=== PATIENT | female | born 2000 | race Caucasian/White ===

== ENCOUNTER → 2025-05-03 | Outpatient (CLI) | payer OTHER, SELFPAY ==
[2025-05-03 08:12] LABS: Bacteria 0 SEEN /hpf (None Seen); Mucous, Urine 0 SEEN /hpf (<or=2+); Red Blood Cells-Urine 0 SEEN /hpf (0-5)
[2025-05-03 10:24] LABS: Color, Urine Yellow (Yellow); Glucose, Dipstick Normal (Normal); Ketone-Dipstick Negative (Negative); Leukocyte Esterase-Dipstick 100 /ul (Negative); Nitrite-Dipstick Positive (Negative); Occult Blood-Urine Negative /ul (Negative); Protein-Dipstick 15 mg/dl (Negative); Urine Bilirubin Dipstick Negative (Negative); Urine Clarity Clear (Clear); Urine Urobilinogen Normal (Normal); Urine pH 6.5 (5.0 - 8.0)
[2025-05-03 10:34] LABS: Squamous Epithelial Cells - UA 0-5 SEEN /hpf (5-10); White Blood Cells 0-5 SEEN /hpf (0-5)
== END | disposition home or self-care (01) ==
LOC: LABSPEC 08:10
PROVIDERS: PCP Pediatrics; Visit Provider Physician Assistant
DX: R30.0 Dysuria (principal)
CPT/HCPCS: 81001; 87086

== ENCOUNTER 2025-07-22 06:36 | Outpatient (REF) | payer OTHER, SELFPAY ==
[2025-07-22 06:40] VITALS: BP 116/85; PULSE 56; RESP 16; TEMP 36.6; O2SAT 100; BMI 20.1
--- NOTE | 2025-07-22 07:09 | EDS_ITS ---
HPI History of Present Illness Chief Complaint: Occup Expose Informant: patient Narrative Narrative: Patient is a 25-year-old female who is otherwise healthy. 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 She states she was wearing gloves and the needle did solis the glove. She states there was a pin prick injury to the thumb with scant bleeding. She reports that this happened just prior to presenting in the ER and that she did wash the area vigorously prior to coming down for evaluation. She denies any numbness tingling or weakness with the potential for blood-borne pathogen exposure she presents for evaluation. PFSH PFS Medical History no medical history no medical history Allergy/AdvReac Type Severity Reaction Status Date / Time No Known Allergies Allergy Verified 05/03/25 07:45 Family History (Updated 05/03/25 @ 07:47 by Allegra Ruiz MA) Other CHF (congestive heart failure) Cancer Graves' disease Surgical History no surgical history Social History (Updated 05/03/25 @ 07:46 by Allegra Ruiz MA) Smoking Status: Never smoker alcohol intake: current alcohol intake frequency: a few times a week Alcohol type: beer ROS ROS ED Constitutional Constitutional ED: Denies chills or fever(s) Cardiovascular Cardiovascular: Denies chest pain Respiratory/Chest Respiratory/Chest: Denies cough or dyspnea Gastrointestinal Gastrointestinal: Denies abdominal pain, diarrhea, nausea or vomiting Musculoskeletal Musculoskeletal: Denies myalgias Integumentary Reports other Details: Positive puncture wound left thumb Neurologic Neurologic: Denies headache(s) or paresthesias Hematologic/Lymphatic Hematologic/Lymphatic: Denies easy bleeding or easy bruising EXAM Physical Exam Const Vital Signs: 07/22/25 06:40 Temperature 97.8 F Temperature Source Oral Pulse Rate 56 L Respiratory Rate 16 Blood Pressure 116/85 H Blood Pressure Mean 95 Pulse Ox 100 Positive well nourished and well developed General Appearance ED: well developed; Negative for pallor HEENT HEENT Narrative: Normocephalic atraumatic Eyes PERRL and EOMs intact bilaterally General Eye ED: Negative for scleral icterus Neck supple Resp normal respiratory effort and clear to auscultation bilaterally Cardio regular rate and regular rhythm Extremity normal to inspection Extremity Narrative: Left upper extremity is neurovascularly intact There is no appreciable wound to the left thumb. No active bleeding. No erythema ecchymosis discharge or lymphangitic streaking. Neuro oriented x3, CN's II-XII intact bilaterally and no sensory deficits noted Sensorium / Orientation: alert Motor Exam: strength 5/5 throughout Psych mental status grossly normal Skin no rashes or lesions noted Skin Narrative: No overlying soft tissue changes to the left thumb to suggest infection such as asymmetric erythema warmth streaking or discharge General Skin Exam: Negative for jaundice or pallor MDM MDM MDM Narrative Medical decision making narrative: Patient arrived to the ER with stable vitals and reported an accidental use needle injury to the left thumb. The injury is superficial causing just a pinprick to the thumb. There is no active bleeding or soft tissue skin changes to suggest infection at this time. In order to cover the patient for potential blood-borne pathogen the standard laboratory testing will be obtained. However she is not immunosuppressed and the type of injury to the thumb has a very low percentage of active transmitting infection and therefore the patient and I agree that there is no need for prophylactic antiviral therapy. Therefore there is no need for wound closure or need for antiviral therapy there is no need for further evaluation in the ER and she is otherwise safe for discharge History & Record Review Discussion w/independent historian: Patient Lab Data Attestation: I reviewed the patient's lab results. 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
--- OUTSIDE RECORDS SUMMARY | 2025-07-22 07:10 | XMS RPT_ITS | CCD ---
Author Organization [facility] ion [facility] Care Team Providers Care News Correspondent Name Role Phone JULIOCESAR RODRIGUEZ Unavailable Unavailable REFERRED, SELF Unavailable Unavailable STRONG, WOOD H Unavailable Unavailable STRONG, WOOD H Unavailable Unavailable JESSICA MICHAUD, ODIN Childers Unavailable Unavailable AIDA SAMUELA Unavailable Unavailable STRONG, WOOD H Unavailable Unavailable KARISHMA ALANIZ Unavailable Unavaila DESHAUN Velez Unavailable Unavailable REFERRED, SELF Unavailable Unavailable STRONG, WOOD H Unavailable Unavailable LAMBERTO THAKKAR Unavailable Unavailable NATALYA, EMMA L Unavailable Unavailable STRONG, WOOD H Unavailable Unavailable MOHAMED, RIHAB Unavailable Unavailable NATALYA, EMMA L Unavailable Unavailable STRONG, WOOD H Unavailable Unavailable MOHAMED, RIHAB Unavailable Unavailable NATALYA, EMMA L Unavailable Unavailable STRONG, WOOD H Unavailable Unavailable MOHAMED, RIHAB Unavailable Unavailable NATALYA, EMMA L Unavailable Unavailable STRONG, WOOD H Unavailable Unavailable MOHAMED, RIHAB Unavailable Unavailable NATALYA, MEMA L Unavailable Unavailable STRONG, WOOD H Unavailable Unavailable STRONG, WOOD H Unavailable Unavailable MOHAMED, RIHAB Unavailable Unavailable NATALYA, EMMA L Unavailable Unavailable STRONG, WOOD H Unavailable Unavailable ROCKER, RADHA Unavailable Unavailable NATALYA, EMMA L Unavailable Unavailable STRONG, WOOD H Unavailable Unavailable LAMBERTO THAKKAR Unavailable Unavailable THOMAS VERDE Unavailable Unavailable STRONG, WOOD H Unavailable Unavailable ROCKER, RADHA Unavailable Unavailable NATALYA, EMMA L Unavailable Unavailable STRONG, WOOD H Unavailable Unavailable ROCKER, RADHA Unavailable Unavailable NATALYA, EMMA L Unavailable Unavailable STRONG, WOOD H Unavailable Unavailable MOHAMED, RIHAB Unavailable Unavailable NATALYA, EMMA L Unavailable Unavailable STRONG, WOOD H Unavailable Unavailable MOHAMED, RIHAB Unavailable Unavailable CASS HOANGA L Unavailable Unavailable Audie Pereyra DO Primary Care Provider Audie Pereyra DO Primary Care Provider Audie Pereyra DO Primary Care Provider Audie Pereyra DO Primary Care Provider Unavailable Primary Care Provider UnavailELIEZER Foote Referring Unavailable JUDSON AMIN Referring Unavailable Audie Pereyra DO Primary Care Provider Goodwin BEVERAGE STEWARD.HOOD MAKER, Luly Dye Unavailable Robby BEVERAGE STEWARD.Taylor EDUARDO Unavailable GLORIA SAMUELS Referring Unavailable AUDIE PEREYRA Primary Care Unavailable GLORIA SAMUELS Attending Unavailable AUDIE PEREYRA Primary Care Unavailable TAYLOR CARRILLO Attending Unavailable AUDIE PEREYRA Primary Care Unavailable Goodwin BEVERAGE STEWARD.HOOD MAKER, Luly Dye Unavailable Rickie CARDOZA, Dr. Landrum Primary Care Provider Dr. Wood Damian MD Referring Provider Gary Bronson Attending Provider [phone] Wood Damian Primary Care Unavailable Wood Damian Referring Unavailable Gary Bronson Attending Unavailable Wood Damian Primary Care Unavailable Wood Damian Referring Unavailable Gary Bronosn Attending Unavailable Wood Damian Primary Care Unavailable Gary Bronson Attending Unavailable Medications Current Medications Medication Drug Class(es) Dates Sig (Normalized) Sig (Original) busPIRone hydrochloride 5 mg oral tablet (20 sources) Start: 05-17-2021 End: 02-05-2023 take 1 tablet by mouth three times daily busPIRone (BUSPAR) 5 mg tablet Indications: Anxiety with depression , Situational anxiety Take 1 tablet by mouth three times daily. For panic attack 60 tablet 1 02/05/2023 Active Comment on above: Take 1 tablet by maryam th three times daily. For panic attack nitrofurantoin, macrocrystals 25 mg / nitrofurantoin, monohydrate 75 mg oral capsule (2 sources) Nitrofuran Antibacterial Start: 05-03-2025 take 1 capsule by mouth every twelve hours at mealtime Nitrofurantoin Monohyd/M-Cryst (Macrobid) 100 mg capsule Active 100 mg PO Q12H 10 5 0 May 03, 2025 12:00am May 07, 2025 12:00am must administer with a meal/food spironolactone 50 mg oral tablet (17 sources) Aldosterone Antagonist Start: 04-15-2023 End: 08-23-2023 take 1 tablet by mouth once daily spironolactone (ALDACTONE) 50 mg tablet Indications: Cystic acne Take 1 tablet by mouth once daily. 90 tablet 1 08/23/2023 Active Start: 01-02-2023 take 1 tablet by maryam th once daily spironolactone (ALDACTONE) 50 mg tablet Take 1 tablet by mouth once daily. 0 01/02/2023 Active Comment on above: Take 1 tablet by maryam th once daily. Completed/Discontinued Medications Medication Drug Class(es) Dates Sig (Normalized) Sig (Original) 24 hr amphetamine aspartate 2.5 mg / amphetamine sulfate 2.5 mg / dextroamphetamine saccharate 2.5 mg / dextroamphetamine sulfate 2.5 mg extended release oral capsule (20 sources) Central Nervous System Stimulant Start: 08-23-2023 End: 01-20-2025 take 1 capsule by mouth once daily amphetamine-dextro amphetamine XR (ADDERALL XR) 10 mg capsule Indications: Attention deficit disorder (ADD) in adult Take 1 capsule by mouth once daily for 30 days. 30 capsule 08/23/2023 01/20/2025 Discontinued (Course of therapy completed) Start: 05-06-2023 End: 08-23-2023 take 1 tablet by mouth once daily dextroamphetamine-amphetamine (ADDERALL) 10 mg tablet Indications: Attention deficit disorder (ADD) in adult Take 1 tablet by mouth once daily for 30 days. 30 tablet 0 05/06/2023 08/23/2023 Discontinued Start: 11-14-2022 End: 03-10-2023 take 1 tablet by mouth once daily dextroamphetamine-amphetamine (ADDERALL) 10 mg tablet Indications: Attention deficit disorder (ADD) in adult Take 1 tablet by mouth once daily for 30 days. 30 tablet 0 02/08/2023 03/10/2023 Active Start: 10-25-2022 End: 11-24-2022 take 1 tablet by mouth once daily amphetamine-dextroamphetamine 15 mg tabl et Indications: Attention deficit disorder (ADD) in adult Take 1 tablet by mouth once daily for 30 days. 30 tablet 0 10/25/2022 11/14/2022 Discontinued Start: 08-02-2022 End: 10-23-2022 take 1 tablet by mouth once daily amphetamine-dextroamphetamine 15 mg tabl et Indications: Attention deficit disorder (ADD) in adult Take 1 tablet by mouth once daily for 30 days. 30 tablet 0 09/20/2022 10/23/2022 Discontinued Start: 07-16-2022 End: 08-15-2022 take 1 tablet by mouth once daily dextroamphetamine-amphetamine (ADDERALL) 10 mg tablet Indications: Attention deficit disorder (ADD) in adult Take 1 tablet by mouth once daily for 30 days. 30 tablet 0 07/16/2022 08/02/2022 Discontinued Start: 06-07-2022 End: 07-07-2022 take 1 tablet by mouth once daily dextroamphetamine-amphetamine (ADDERALL) 10 mg tablet Indications: Attention deficit disorder (ADD) in adult Take 1 tablet by mouth once daily for 30 days. 30 tablet 0 06/07/2022 07/07/2022 Active Start: 02-26-2022 End: 05-30-2022 take 1 tablet by mouth once daily dextroamphetamine-amphetamine (ADDERALL) 10 mg tablet Indications: Attention deficit disorder (ADD) in adult Take 1 tablet by mouth once daily for 30 days. 30 tablet 0 04/30/2022 Active Start: 01-26-2022 End: 02-25-2022 take 1 tablet by mouth once daily dextroamphetamine-amphetamine (ADDERALL) 5 mg tablet Indications: Attention deficit disorder (ADD) in adult Take 1 tablet by mouth once daily for 30 days. 30 tablet 0 01/26/2022 Active Comment on above: Take 1 tablet by [facility] once daily for 30 days. Take 1 capsule by [facility] once daily for 30 days. 12 hr buPROPion hydrochloride 150 mg extended release oral tablet (20 sources) Aminoketone Start: 2 End: take 1 tablet by mouth twice daily buPROPion SR (WELLBUTRIN SR) 150 mg 12 hr tablet Indications: Vaping nicotine dependence, tobacco product , Anxiety with depression Take 1 tablet by mouth twice daily. 180 tablet 1 05/04/2022 Active Start: 05-25-2021 take 1 tablet by [facility] twice daily buPROPion SR (WELLBUTRIN SR) 150 mg 12 hr tablet Indications: Vaping nicotine dependence, tobacco product , Anxiety with depression Take 1 tablet by mouth twice daily. 180 tablet 1 05/25/2021 Active Comment on above: Take 1 tablet by maryam twice daily. cranberry conc-ascorbic acid 4,200-20 mg cap (20 sources) End: 01-20-2025 cranberry conc-ascorbic acid 4,200-20 mg cap Take by mouth as needed. Every other day 01/20/2025 Discontinued (Course of therapy completed) cranberry conc-a scorbic acid 4,200-20 mg cap Take by mouth as needed. Every other day 0 Active Comment on above: Take by mouth as nee ded. Every other day DULoxetine 30 mg delayed release oral capsule (6 sources) Serotonin and Norepinephrine Reuptake Inhibitor Start: 021 take 1 capsule by mouth once daily DULoxetine (CYMBALTA) 30 mg capsule Indications: Anxiety with depression Take 1 capsule by mouth once daily. 90 capsule 1 07/27/2021 Active Comment on above: Take 1 capsule by mo [facility] once daily. Ethinyl Estradiol / Levonorgestrel (20 sources) Progestin, Estrogen, Progestin-containing Intrauterine Device Start: 024 End: 025 take 1 tablet by mouth once daily Levonorgestrel-Ethin yl Estrad (LARISSIA) 0.1mg - 20mcg per tablet Indications: Encounter for surveillance of contraceptive pills Take 1 tablet by mouth once daily. 84 tablet 2 04/10/2024 01/20/2025 Discontinued (Course of therapy completed) Start: 06-07-2023 End: 04-10-2024 take 1 tablet by mouth once daily Levonorgestrel-Ethinyl Estrad (LARISSIA) 0.1mg - 20mcg per tablet Indications: Encounter for surveillance of contraceptive pills Take 1 tablet by mouth once daily. 84 tablet 2 06/07/2023 04/10/2024 Discontinued Start: 06-07-2023 take 1 tablet by maryam once daily Levonorgestrel-Ethinyl Estrad (LARISSIA) 0.1mg - 20mcg per tablet Indications: Encounter for surveillance of contraceptive pills Take 1 tablet by mouth once daily. 84 tablet 2 06/07/2023 Active Start: 01-02-2023 End: 06-06-2023 take 1 tablet by mouth once daily Levonorgestrel-Ethinyl Estrad (LARISSIA) 0.1mg - 20mcg per tablet Indications: Encounter for surveillance of contraceptive pills Take 1 tablet by mouth once daily. 84 tablet 2 01/02/2023 06/06/2023 Discontinued Start: 01-02-2023 take 1 tablet by maryam th once daily Levonorgestrel-Ethinyl Estrad (LARISSIA) 0.1mg - 20mcg per tablet Indications: Encounter for surveillance of contraceptive pills Take 1 tablet by mouth once daily. 84 tablet 2 01/02/2023 Active Start: 10-03-2022 End: 01-02-2023 take 1 tablet by mouth once daily Levonorgestrel-Ethinyl Estrad (LARISSIA) 0.1mg - 20mcg per tablet Indications: Encounter for initial prescription of contraceptive pills Take 1 tablet by mouth once daily. 84 tablet 0 10/03/2022 01/02/2023 Discontinued Start: 10-03-2022 take 1 tablet by maryam th once daily Levonorgestrel-Ethinyl Estrad (LARISSIA) 0.1mg - 20mcg per tablet Indications: Encounter for initial prescription of contraceptive pills Take 1 tablet by mouth once daily. 84 tablet 0 10/03/2022 Active Start: 07-11-2022 End: 10-03-2022 take 1 tablet by mouth once daily Levonorgestrel-Ethinyl Estrad (LARISSIA) 0.1mg - 20mcg per tablet Indications: Encounter for initial prescription of contraceptive pills Take 1 tablet by mouth once daily. 84 tablet 0 07/11/2022 10/03/2022 Discontinued Start: 07-11-2022 take 1 tablet by maryam th once daily Levonorgestrel-Ethinyl Estrad (LARISSIA) 0.1mg - 20mcg per tablet Indications: Encounter for initial prescription of contraceptive pills Take 1 tablet by mouth once daily. 84 tablet 0 07/11/2022 Active Start: 04-30-2022 End: 07-08-2022 take 1 tablet by mouth once daily Levonorgestrel-Ethinyl Estrad (LARISSIA) 0.1mg - 20mcg per tablet Indications: Encounter for initial prescription of contraceptive pills Take 1 tablet by mouth once daily. 84 tablet 0 04/30/2022 07/08/2022 Discontinued Start: 04-30-2022 take 1 tablet by maryam th once daily Levonorgestrel-Ethinyl Estrad (LARISSIA) 0.1mg - 20mcg per tablet Indications: Encounter for initial prescription of contraceptive pills Take 1 tablet by mouth once daily. 84 tablet 0 04/30/2022 Active Start: 02-12-2022 End: 04-30-2022 take 1 tablet by mouth once daily Levonorgestrel-Ethinyl Estrad (LARISSIA) 0.1mg - 20mcg per tablet Indications: Encounter for initial prescription of contraceptive pills Take 1 tablet by mouth once daily. 84 tablet 0 02/12/2022 04/30/2022 Discontinued Start: 02-12-2022 take 1 tablet by maryam th once daily Levonorgestrel-Ethinyl Estrad (LARISSIA) 0.1mg - 20mcg per tablet Indications: Encounter for initial prescription of contraceptive pills Take 1 tablet by mouth once daily. 84 tablet 0 02/12/2022 Active Start: 11-24-2021 End: 02-11-2022 take 1 tablet by mouth once daily Levonorgestrel-Ethinyl Estrad (LARISSIA) 0.1mg - 20mcg per tablet Indications: Encounter for initial prescription of contraceptive pills Take 1 tablet by mouth once daily. 84 tablet 0 11/24/2021 02/11/2022 Discontinued Comment on above: Take 1 tablet by maryam th once daily. FLUoxetine 20 mg oral capsule (3 sources) Serotonin Reuptake Inhibitor Start: 08-03-20 End: 05-03-20 take 1 capsule by mouth once daily Fluoxetine 20 MG capsule Discontinued 20 mg PO DAILY August 03, 2016 12:00am May 03, 2025 7:45am promethazine hydrochloride 25 mg oral tablet (3 sources) Phenothiazine Start: 08-03-20 End: 05-03-20 Promethazine 25 MG tablet Discontinued 12.5 mg PO EVERY 6 HOURS NEEDED as needed for Nausea 10 0 August 03, 2016 12:00am May 03, 2025 7:45am Start: 08-03-2016 take 12.5 mg by mout h every six hours as needed Promethazine Active 12.5 MG PO EVERY 6 HOURS NEEDED August 02, 2016 11:00pm Problems Active Problems Problem Classification Problem Date Documented Date Episodic/Chronic Administrative/social admission (3 sources) Special examination status; Translations: [Encounter for examination for participation in sport] 01-05-2019 Episodic Anxiety disorders (20 sources) Generalized anxiety disorder; Translations: [Generalized anxiety disorder] Onset: 05-21-2017 05-21-2017 Chronic Disorders usually diagnosed in infancy, childhood, or adolescence (20 sources) Adult attention deficit hyperactivity disorder ; Translations: [Other specified behavioral and emotional disorders with onset usually occurring in childhood and adolescence] Onset: 01-08-2022 01-08-2022 Chronic Genitourinary symptoms and ill-defined conditions (1 source) Dysuria; Translations: [Dysuria] Onset: 05-05-2025 Episodic Immunizations and screening for infectious disease (6 sources) Antibody titer - finding; Translations: [Raised antibody titer] Onset: 01-20-2025 Episodic Other screening for suspected conditions (not mental disorders or infectious disease) (2 sources) Cancer cervix screening status; Translations: [Encounter for screening for malignant neoplasm of cervix] 01-06-2024 Episodic Other skin disorders (1 source) Cystic acne; Translations: [Acne vulgaris] 08-23-2023 Episodic Substance-related disorders (20 sources) Nicotine dependence; Translations: [Nicotine dependence, other tobacco product, uncomplicated] Onset: 05-04-2022 05-04-2022 Chronic Unclassified (2 sources) pe; Translations: [pe] Onset: 05-09-2023 Unclassified (2 sources) New Hire Physical; Translations: [New Hire Physical] Onset: 05-01-2023 Past or Other Problems Problem Classification Problem Date Documented Date Episodic/Chronic Acquired foot deformities (20 sources) Deformity of toe; Translations: [Acquired deformities of toe(s), unspecified, left foot] Onset: 05-04-2022 05-04-2022 Episodic Contraceptive and procreative management (11 sources) Patient encounter status; Translations: [Encounter for initial prescription of contraceptive pills] Onset: 04-10-2024 Episodic Other skin disorders (20 sources) Acne; Translations: [Acne, unspecified] Onset: 05-21-2017 05-21-2017 Episodic Results Test Name Value Interpretation Reference Range Facility Urine Cultureon 05-04-2025 [facility]RC Culture exhibits no growth. Normal [facility] Comment on above: Performed By: #### L 400.0001, M100.2200 #### [facility] [address] [place], [address] Bilirubin Test strip Ql (U)O rdered By: Gary Loco on 05-03-2025 Bilirubin Ql (U) Negative Negative [facility] Ketones Test strip Ql (U)Ord ered By: Gary Loco on 05-03-2025 Ketones Ql (U) Negative Negative [facility] Microscopic analysis of urin e for red blood cells (RBC)Ordered By: Gary Loco on 05-03-2025 Microscopic analysis of urine for red blood cells (RBC) 0 SEEN /hpf 0-5 [facility] Mucus LM Ql (Urine sed)Order ed By: Gary Loco on 05-03-2025 Mucus Ql (Urine sed) 0 SEEN /hpf [facility] Nitrite Test strip Ql (U)Ord ered By: Gary Loco on 05-03-2025 Nitrite Ql (U) Positive High Negative [facility] Protein Test strip Ql (U)Ord ered By: Gary Loco on 05-03-2025 Protein Ql (U) 15 mg/dl High Negative [facility] Squamous epithelial cells de tection in urine sediment by light microscopyOrdered By: Gary Loco on 05-03-2025 Epithelial cells.squamous LM Ql (Urine sed) 0-5 SEEN /hpf 5-10 [facility] Urgent Care Visit Reporton 0 05-03-2025 Urgent Care Visit Report [facility] [address], [address] [place] [address] OFFICE VISIT Date of Service: 05/03/25 MR#: [id number] Acct: [id number] Name: PASTOR PRADHAN Rep #: [id number] : 2000 Provider: CLAUDIA Puga Age/Sex: 24/F Location: [facility] Status: Signed Intake Vital Signs 08/03/16 14:38 05/03/25 07:47 Height 5 ft 5 in 5 ft 5 in Weight: 117 lb 4 oz BMI 19.5 BP 102/62 Position Sitting Respiration 16 Pulse 60 Temp 98.5 F Temp Source Oral Pulse Oximetry (%) 100 Oxygen Delivery Method room air Intake Visit Reasons: CONCERN FOR UTI Accompanied by: Self Allergies No Known Allergies Allergy (Verified 05/03/25 07:45) Medications ???Medication ???Instructions ???Recorded ???Confirmed ???Type nitrofurantoin 100 mg PO Q12H 5 days #10 caps 05/03/25 Rx monohydrate/macrocrystals 100 mg capsule (Macrobid) Nurse's Note: Patient has concerns for a UTI. Patient has frequency and urgency and burning since last night. Patient has old Macrobid at home and she took 2 doses and she also took 2 Pyridium. Patient is pron to UTI's. [facility] Family History (Updated 05/03/25 @ 07:47 by Allegra Ruiz MA) Other CHF (congestive heart failure) Cancer Graves' disease Social History (Updated 05/03/25 @ 07:46 by Allegra Ruiz MA) Smoking Status: Never smoker alcohol intake: current alcohol intake frequency: a few times a week Alcohol type: beer HPI HPI Details: PASTOR PRADHAN, is a 24 F who presents to the office today for initial evaluation at [facility] for several day history of dysuria and urinary frequency with suprapubic pressure. No complaints of fever, chills, sweats, lightheadedness/dizziness , nausea/vomiting, or chest pain/shortness of breath/dyspnea on exertion/back pain. No changes in color/ character of urine or stool; no urethral/ vaginal discharge. Patient admits to taking cekq-orn-ninipsm Azo as well as 2 doses of Macrobid that were leftover from an old prescription which both have helped somewhat. No abxc-bkm-pwtzqxy products taken to assist. No other associated symptoms and no alleviating/aggravating factors. ROS Const Constitutional: No other (As above) Exam Const General: cooperative, healthy appearing and no acute distress Orientation: alert, awake and oriented x3 Chest Chest palpation inspection: normal inspection of the chest Resp Effort Inspection: normal respiratory effort and able to speak in complete sentences Cardio Rate: regular rate Pulses: radial pulses present GI Inspection: normal to inspection Palpation: soft and tender suprapubic (Patient describes upon self-palpation) General: No CVA tenderness Skin General: no rashes or lesions noted Neuro General: patient alert, patient awake and patient oriented x3 Cognition: normal cognition Speech: speech normal Psych Appearance: grossly normal Mental Status: mental status grossly normal Mood: congruent mood Affect: normal affect Speech and Movement: speech and movement normal Attitude: cooperative Diagnoses Urinary tract infection N39.0 Assessment and Plan Assessment and Plan (1) Urinary tract infection: Status: Acute Plan: See POC results; urine sent to lab for urinalysis and C/S. Macrobid as prescribed today. Supportive measures as instructed today. Follow-up with PCP in 3 to 5 days should symptoms not improve, sooner should symptoms only worsen or any other concerns develop. Patient states acknowledging understanding all the above. Results POC Urine Office , Urine Negative Last Edit by Allegra Ruiz MA on 05/03/25 08:05 Coding Level of Care Code Off vis,est,level 3 Assessment and Plan Assessment and Plan Orders: Orders Culture, Urine Today R30.0 - Dysuria POC Urine Today R30.0 - Dysuria Urinalysis, Complete Today R30.0 - Dysuria Medications: New nitrofurantoin monohyd/m-cryst 100 mg (Macrobid) must administer with a meal/food 100 mg PO Q12H 5 days 10 caps 0RF Discontinued promethazine Discontinued Reason: Pt no longer taking 12.5 mg (1/2 x 25 mg) PO Q6H PRN PRN 10 TABLETS 0RF Nausea 05/03/25 0807 Date Gary Cool Signature: Date (if applicable) CC: Normal [facility] Urinalysis, Completeon 05-03 EPI,SQUAMOUS 0-5 SEEN Normal 5-10 [facility] Comment on above: Order Comment: COLLE CTOR TO SPECIFY Performed By: #### L 400.0001, M100.2200 #### [facility] [address] [place], [address] WBC 0-5 SEEN Normal 0-5 [facility] Comment on above: Order Comment: GAGE CTOR TO SPECIFY Performed By: #### L 400.0001, M100.2200 #### [facility] [address] [place], [address] BACTERIA 0 SEEN Normal None Seen [facility] Comment on above: Order Comment: GAGE CTOR TO SPECIFY Performed By: #### L 400.0001, M100.2200 #### [facility] [address] [place], [address] Mucus Ql (Urine sed) 0 SEEN Normal [facility] Comment on above: Order Comment: GAGE CTOR TO SPECIFY Performed By: #### L 400.0001, M100.2200 #### [facility] [address] [place], [address] RBC 0 SEEN Normal 0-5 [facility] Comment on above: Order Comment: GAGE CTOR TO SPECIFY Performed By: #### L 400.0001, M100.2200 #### [facility] [address] [place], [address] Urine clarityOrdered By: Carlos Loco on 05-03-2025 Clarity (U) Clear Clear [facility] Urine color determinationOrd ered By: Gary Loco on 05-03-2025 Color (U) Yellow Yellow [facility] Urine cultureOrdered By: Carlos Loco on 05-03-2025 Bacteria identified Cx Nom (U) Culture exhibits no growth. [facility] Urine glucose detectionOrder ed By: Gary Loco on 05-03-2025 Glucose Ql (U) Normal mg/dl Normal [facility] Urine leukocyte esterase det ection by dipstickOrdered By: Gary Loco on 05-03-2025 Leukocyte esterase Test strip Ql (U) 100 /ul High Negative [facility] Urine pHOrdered By: Gary avila on 05-03-2025 pH (U) 6.5 [pH] 5.0 - 8.0 [facility] Urine sediment bacteria coun t by microscopy (number/high power field)Ordered By: Gary Loco on 05-03-2025 Bacteria LM.HPF (Urine sed) [#/Area] 0 /[HPF] None Seen [facility] Urine specific gravity measu rementOrdered By: Gary Loco on 05-03-2025 Specific gravity (U) [Rel density] 1.010 1.002-1.030 [facility] Urine urobilinogen measureme ntOrdered By: Gary Loco on 05-03-2025 Urobilinogen Ql (U) Normal mg/dl Normal [facility] White blood cell countOrdere d By: Gary Loco on 05-03-2025 White blood cell count 0-5 SEEN /hpf 0-5 [facility] BACTERIAL VAGINOSIS NAATon 0 01-20-2025 Lactobacillus crispatus+gasseri+josé miguel enii + Gardnerella vaginalis + Atopobium vaginae rRNA MICHELET+probe Ql (Vag fld) Not detected Normal Not detected [facility] Comment on above: Order Comment: Speci men Type: SWAB Ordering Facility: [facility] Address: [address] [place] [address] Performed By: #### C VTV, BVAMP #### [facility] CLIA [id number] [place] [address] [place] C. trachomatis+N. gonorrhoea e DNA MICHELET+probe Ql (Unsp spec)on 01-20-2025 C. trachomatis rRNA MICHELET+probe Ql (Unsp spec) Not detected Normal Not detected [facility] Comment on above: Order Comment: Speci men Type: SWAB Ordering Facility: [facility] Address: [address] [place] [address] Performed By: #### 3 6902-5 #### [facility] CLIA [id number] [address] [place] [address] [place] N. gonorrhoeae rRNA MICHELET+probe Ql (Unsp spec) Not detected Normal Not detected [facility] Comment on above: Order Comment: Speci men Type: SWAB Ordering Facility: [facility] Address: [address] [place] [address] Performed By: #### 3 6902-5 #### [facility] CLIA [id number] [address] [place] [address] [place] FARHAT/TRICHOMONAS NAATon 0 01-20-2025 C. glabrata RNA MICHELET+probe Ql (Vag fld) Not detected Normal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 07-09-2001 measles, mumps and rubella virus vaccine Audie Pereyra DO Work Phone: [facility] Work Phone: 07-09-2001 varicella virus vaccine Jord an Pereyra DO Work Phone: [facility] Work Phone: 03-24-2001 hepatitis B vaccine, pediatric or pediatric/adolescent dosage Audie Pereyra DO Work Phone: [facility] Work Phone: 03-24-2001 poliovirus vaccine, inactivated Audie Pereyra DO Work Phone: [facility] Work Phone: 01-02-2001 diphtheria, tetanus toxoids and acellular pertussis vaccine Audie Pereyra DO Work Phone: [facility] Work Phone: 01-02-2001 haemophilus influenz ae type b vaccine, HbOC conjugate Audie Pereyra DO Work Phone: [facility] Work Phone: 01-02-2001 pneumococcal conjuga te vaccine, 7 valent Audie Pereyra DO Work Phone: [facility] Work Phone: 2000 diphtheria, tetanus toxoids and acellular pertussis vaccine Audie Pereyra DO Work Phone: [facility] Work Phone: 2000 haemophilus influenz ae type b vaccine, HbOC conjugate Audie Pereyra DO Work Phone: [facility] Work Phone: 2000 pneumococcal conjuga te vaccine, 7 valent Audie Pereyra DO Work Phone: [facility] Work Phone: 2000 poliovirus vaccine, inactivated Audie Pereyra DO Work Phone: [facility] Work Phone: 2000 diphtheria, tetanus toxoids and acellular pertussis vaccine Audie Pereyra DO Work Phone: [facility] Work Phone: 2000 haemophilus influenz ae type b vaccine, HbOC conjugate Audie Pereyra DO Work Phone: [facility] Work Phone: 2000 pneumococcal conjuga te vaccine, 7 valent Audie Pereyra DO Work Phone: [facility] Work Phone: 2000 poliovirus vaccine, inactivated Audie Pereyra DO Work Phone: [facility] Work Phone: 2000 hepatitis B vaccine, pediatric or pediatric/adolescent dosage Audie Pereyra DO Work Phone: [facility] Work Phone: 2000 hepatitis B vaccine, pediatric or pediatric/adolescent dosage Audie Pereyra DO Work Phone: [facility] Work Phone: Payers Date Payer Category Payer Unknown [id number] 2024 Self-pay [id number] 2023 Private Health Insurance [id number] 2015 Private Health Insurance [id number] 2011 Private Health Insurance [employer] A ETNA CHOICE POS II [id number] 2011-Present [phone] [address] [place] [address] POS [id number] 2011 Private Health Insurance [id number] Unknown [id number] Unknown [id number] Unknown [id number] Social History Date Type Detail Facility Start: 08-31-2015 End: 05-03-2025 Tobacco smoking status NHIS Never smoked tobacco [facility] Start: 01-08-2022 End: 01-20-2025 Alcohol intake Current drinker of alcohol (finding) [facility] Start: 04-05-2021 End: 01-02-2023 History SDOH Alcohol Frequency 4 [facility] Start: 04-05-2021 End: 01-02-2023 History SDOH Alcohol Std Drinks 2 [facility] Start: 04-05-2021 End: 01-02-2023 History SDOH Alcohol Binge 3 [facility] Start: 08-07-2018 History SDOH Alcohol Comment Rarely [facility] Start: 04-05-2021 History SDOH Social Connections Phone 5 [facility] Start: 04-05-2021 History SDOH Social Connections Meetings 98 [facility] Start: 04-05-2021 End: 01-02-2023 History SDOH Social Connections Living 7 [facility] Start: 04-05-2021 End: 01-08-2022 History SDOH Physical Activity DPW 1 [facility] Start: 04-05-2021 End: 01-02-2023 History SDOH Physical Activity MPS 6 [facility] Start: 04-04-2021 Education 21 [facility] Start: 2000 Sex Assigned At Female [facility] Start: 04-02-2022 End: 05-04-2022 Exposure to SARS-CoV-2 (event) Not sure [facility] Start: 08-31-2015 End: 10-30-2023 Tobacco use and exposure Smokeless tobacco non-user [facility] Work Phone: Tobacco smoking stat [facility] Tobacco smoking consumption unknown [facility] Start: 2000 Sex Assigned At Not on file [facility] Start: 01-02-2023 End: 06-21-2023 History of Social function [facility] Start: 01-02-2023 End: 06-21-2023 Social connection and isolation panel [facility] Do you belong to any clubs or organizations such as mormon groups, unions, fraternal or athletic groups, or school groups? Yes [facility] Are you now , , , , never or living with a partner? Never [facility] How often to you hav e a drink containing alcohol? 2-4 times a month [facility] How many standard dr inks containing alcohol do you have on a typical day? 5 or 6 [facility] How often do you hav e 6 or more drinks on 1 occasion? Monthly [facility] How hard is it for y ou to pay for the very basics like food, housing, medical care, and heating Somewhat hard [facility] Adult Depression Screening Assessment 2 [facility] Do you feel stress - tense, restless, nervous, or anxious, or unable to sleep at night because your mind is troubled all the time - these days [OSQ] Rather much [facility] (I/We) worried wheth er (my/our) food would run out before (I/we) got money to buy more. Never true [facility] In the past 12 month s, was there a time when you were not able to pay the mortgage or rent on time? No [facility] Start: 12-27-2021 Gender identity Identifies as female gender (finding) [facility] How often do you hav e 6 or more drinks on 1 occasion? Monthly [facility] How often to you hav e a drink containing alcohol? 2-3 time sa week [facility] How many standard dr inks containing alcohol do you have on a typical day? 3 or 4 [facility] Do you feel stress - tense, restless, nervous, or anxious, or unable to sleep at night because your mind is troubled all the time - these days [OSQ] Only a little [facility] Functional Status Date Assessment Result Facility 03-29-2015 Are you deaf, or do you have serious difficulty hearing No 03/29/2015 3:51 PM [address]enia Ortiz MA [facility] 03-29-2015 Are you blind, or do you have serious difficulty seeing, even when wearing glasses No 03/29/2015 3:51 PM Yesenia Ortiz MA No [facility] 03-29-2015 Do you have serious difficulty walking or climbing stairs No 03/29/2015 3:51 PM Yesenia Ortiz MA No [facility] 03-29-2015 Do you have difficul ty dressing or bathing No 03/29/2015 3:51 PM Yesenia Ortiz MA No [facility] Mental Status Date Assessment Result Facility 03-29-2015 Because of a physica l, mental, or emotional condition, do you have serious difficulty concentrating, remembering, or making decisions No 03/29/2015 3:51 PM Yesenia Ortiz MA No [facility] Clinical Notes 02-12-2022 to 05-03-2025 Note Date & Type Note Facility 05-03-2025 Progress note [facility] 05-03-2025 Progress note Note Date/Time May 03, 2025 8:07am [facility] [address], [address] [place], [place] [id number] OFFICE VISIT Date of Service: 05/03/25 MR#: [id number] Acct: [id number] Name: PASTOR PRADHAN Rep #: [id number] : 2000 Provider: CLAUDIA Puga Age/Sex: 24/F Location: [email or web address] Status: Signed Intake Vital Signs 08/03/16 14:38 05/03/25 07:47 Height 5 ft 5 in 5 ft 5 in Weight: 117 lb 4 oz BMI 19.5 BP 102/62 Position Sitting Respiration 16 Pulse 60 Temp 98.5 F Temp Source Oral Pulse Oximetry (%) 100 Oxygen Delivery Method room air Intake Visit Reasons: CONCERN FOR UTI Accompanied by: Self Allergies No Known Allergies Allergy (Verified 05/03/25 07:45) Medications ?Medication ?Instructions ?Recorded ?Confirmed ?Type nitrofurantoin 100 mg PO Q12H 5 days #10 ca ps 05/03/25 05/03/25 Rx monohydrate/macrocrystals 100 mg capsule (Macrobid) Nurse's Note: Patient has concerns for a UTI. Patient has frequency and urgency and burning since last night. Patient has old Macrobid at home and she took 2 doses and she also took 2 Pyridium. Patient is pron to UTI's. [facility] Family History (Updated 05/03/25 @ 07:47 by Allegra Ruiz MA) Other CHF (congestive heart failure) Cancer Graves' disease Social History (Updated 05/03/25 @ 07:46 by Allegra Ruiz MA) Smoking Status: Never smoker alcohol intake: current alcohol intake frequency: a few times a week Alcohol type: beer HPI HPI Details: PASTOR PRADHAN, is a 24 F who presents to the office today for initial evaluation at the [facility] for several day history of dysuria and urinary frequency with suprapubic pressure. No complaints of fever, chills, sweats, lightheadedness/dizziness, nausea/vomiting, or chest pain/shortness of breath/dyspnea on exertion/back pain. No changes in color/ character of urine orstool; no urethral/ vaginal discharge. Patient admits to taking [id number] Azo as well as 2 doses of Macrobid that were leftover from an old prescription which both have helped somewhat. No saok-asw-[id number] products taken to assist. No other associated symptoms and no alleviating/aggravating factors. ROS Const Constitutional: No other (As above) Exam Const General: cooperative, healthy appearing and no acute distress Orientation: alert, awake and oriented x3 Chest Chest palpation & inspection: normal inspection of the chest Resp Effort & Inspection: normal respiratory effort and able to speak in complete sentences Cardio Rate: regular rate Pulses: radial pulses present GI Inspection: normal to inspection Palpation: soft and tender suprapubic (Patient describes upon self-palpation) General: No CVA tenderness Skin General: no rashes or lesions noted Neuro General: patient alert, patient awake and patient oriented x3 Cognition: normal cognition Speech: speech normal Psych Appearance: grossly normal Mental Status: mental status grossly normal Mood: congruent mood Affect: normal affect Speech and Movement: speech and movement normal Attitude: cooperative Diagnoses Urinary tract infection N39.0 Assessment and Plan Assessment and Plan (1) Urinary tract infection: Status: Acute Plan: See POC results; urine sent to lab for urinalysis and C/S. Macrobid as prescribed today. Supportive measures as instructed today. Follow-up with PCP in 3 to 5 days should symptoms not improve, sooner should symptoms only worsen or any other concerns develop. Patient states acknowledging understanding all the above. Results POC Urine Office , Urine Negative Last Edit by Allegra Ruiz MA on 05/03/25 08:05 Coding Level of Care Code Off vis,est,level 3 Assessment and Plan Assessment and Plan Orders: Orders Culture, Urine Today R30.0 - Dysuria POC Urine Today R30.0 - Dysuria Urinalysis, Complete Today R30.0 - Dysuria Medications: New nitrofurantoin monohyd/m-cryst 100 mg (Macrobid) must administer with a meal/food 100 mg PO Q12H 5 days 10 caps 0RF Discontinued promethazine Discontinued Reason: Pt no longer taking 12.5 mg (1/2 x 25 mg) PO Q6H PRN PRN 10 TABLETS 0RF Nausea 05/03/25 0807 <Electronically signed by Gary TAYLOR> Date _ Gary TAYLOR Cosigner Signature: Date (if applicable) CC: ~ [place] [employer] Work Phone: [phone] Instructions* Patient Instructions* Gloria Samuels APRN.CNM - 01/20/2025 3:04 PM EDT ACOG Screening Guidelines The following health screening schedule is recommended by the [employer] (ACOG). Some of these tests may be ordered or performed by your primary care doctor. Pap test screening The pap test looks at cells on the cervix (the opening from the vagina to the uterus) to look for cancer or pre-cancerous changes. These changes are caused by the human papillomavirus (HPV). Studies estimate that half of all women will test positive for this virus within 3 years of starting sexual activity. For young women with a normal immune system, 90% of HPV infections will resolve within 2 years. There is a vaccine available against some forms of HPV. This is recommended for girls and women age 9-45. For ages 9-14, two injections are given at 0 and 6 months. For ages 15-45, three injections are given at 0,2 and 6 months. Because this vaccine does not protect against all HPV types whichcan cause cervical cancer, women who received the vaccine still need pap tests. Pap smear screening should be started at age 21. The pap test should be done every 3 years from [id number]. From age 30-65, pap smears can be done every 5 years if HPV test is negative or every 3 years if HPV testing is not done. For women over the age of 65, ACOG recommends against screening women who have had adequate prior screening and are not otherwise at high risk for cervical cancer. Women who have had a hysterectomy also do not need routine pap smear screening unless the pap smear was done for a cervical cancer or moderate to severe dysplasia. Breast cancer screening Mammogram should be performed every 1-2 years starting at age 40 and every year starting at age 50.Screening may be started earlier depending on family history. Cholesterol screening Lipid panel (cholesterol test) should be checked every 5 years starting at age 45. Diabetes screening Fasting glucose (blood sugar) test should be performed every 3 years starting at age 45. Colorectal cancer screening Starting at age 45, women should have a screening colonoscopy at least every 10 years. Screening may be started earlier depending on family history. Thyroid screening Thyroid function test (TSH) should be checked every 5 years starting at age 50. Bone mineral density screening All postmenopausal women age 65 and over and postmenopausal women with risk factors for osteoporosis should have a bone mineral density test performed. Risk factors include race, family history of osteoporosis, personal history of fractures, poor nutrition, smoking, heavy alcohol use, early menopause, low calcium intake and low body weight. Certain medical conditions and long-term use of some medications may also increase risk. Body max Index (BMI) Your body mass index (BMI) is a measure of your body fat based on your weight and height. The number that is calculated will tell you if you fall into the normal, overweight or obese category. BMI Table Normal weight: BMI is between 19 and 24.9 Overweight: BMI is between 25 and 29.9 Obese: BMI is 30 and above Why is BMI important? Being overweight or obese (BMI over 25) can exacerbate or put you at risk for getting certain diseases, like the ones listed below: Arthritis Asthma Cancer Diabetes Mellitus Type 2 Heart Attack High blood pressure Hypertension Hyperlipidemia Kidney failure Other Lung diseases Sleep Apnea Stroke How can I lose weight: Choosing healthy foods in small portions and exercising regularly is a good way to start. The following are a few tips: Choose foods and snacks higher in protein and fiber. Reduce the amount of sugary drinks (like soda) and snacks (cookies, sweets, etc) Cut back on the amount of carbohydrates eaten daily (bread, pasta, rice, cakes) Drink at least 8 glasses of water per day - sometimes thirst feels like hunger - stay hydrated Chew your food slowly to savor the taste and allow the signal that you are full to register in yourbrain Exercise/Activity Exercise improves your blood flow and circulation, enhances your mood and can you to maintain or lose weight. A brisk walk for 30 mins or longer 4-5 times per week is recommended but you can also use DVD's at home such as Walk Away the Pounds, Tigist exercises, Yoga and others to get some variety. When do I need a referral? If you have tried all of the above and have not lost any weight, then you should ask your provider for a referral to a coronary clinical specialist or medical weight product management specialist who can help you reach your goals for being at your ideal body weight. Calcium and Vitamin D Supplementation (from the National Institutes of Health Office of Dietary Supplements 2011) Calcium is required by the body for blood vessel, muscle, hormone and nerve functioning. Most of the body's calcium is stored in the bones and teeth where it supports structure and function. Bone is continuously broken down and reformed. When bone breakdown exceeds formation, especially in postmenopausal women, bone loss can increase the risk of osteoporosis and fractures. In addition to low calcium intake, women who smoke, have a family history of osteoporosis, are thin, or , orwho take certain medications such as cancer chemotherapy, seizure mediations and steroids are at increased risk of osteoporosis. The calcium requirements in women change with age. The National Institutes of Health (NIH) recommends: 1000mg elemental calcium for premenopausal women age 19-50 1200mg elemental calcium for postmenopausal women and all women over 50 Milk, yogurt, and cheese are rich natural sources of calcium and are the major food contributors inthe [place]. For example, 8oz of milk (whole, lowfat or skim) contains about 300mg calcium, 8oz of yogurt contains 415mg. Nondairy sources include salmon and sardines and vegetables, such as Amharic cabbage, kale, and broccoli. Foods fortified with calcium include many fruit juices, tofu and cereals. For more food calcium content information, visit http://ods.od.nih.gov/factsheets/calcium. Calcium supplements come in several different forms. Remember that the recommendations are for millgrams (mg) of elemental calcium which may be less than the total weight of the supplement. The amount of elemental calcium is required to be printed on the label. Calcium carbonate is the least expensive form. It must be taken on a full stomach to be properly absorbed. Some patients may experience gas or constipation. Calcium phosphate and calcium citrate may be taken either with or without food and tend to have less side effects but are generally more expensive. Because of its ability to neutralize stomach acid, calcium carbonate is found in some [id number] antacid products, such as Tums and Rolaids . Depending on its strength, each chewable pill or softchew provides 200 to 400 mg of elemental calcium. The percentage of calcium absorbed depends on the total amount of elemental calcium consumed at onetime. Absorption is highest in doses <500mg. So a woman who takes 1,000mg/day of calcium from supplements should split the dose and take 500mg at two separate times during the day. Too much calcium can cause kidney stones, constipation, difficulty absorbing other nutrients and calcium buildup in blood vessels. Women under 50 should not exceed 2500mg/day (2000mg/day for women over 50) of calcium from food and supplements. Excessive alcohol and caffeine intake can inhibit absorption of calcium. Calcium can reduce the absorption of some medications if taken at the same time of day (bisphosphonates, thyroid medication, Phenytoin and other seizure medications, some antibiotics and iron supplements). Vitamin D promotes calcium absorption in the gut and maintains adequate blood levels of calcium andphosphate for normal bone growth and bone remodeling. Vitamin D also helps regulate cell growth as well as nerve, muscle and immune system function. Vitamin D is produced in the skin as a result of ultraviolet sunlight rays and must be altered in the liver and kidney to become its active form. Recommended intake according to the National Institutes of Health is 600 International Units (IU) for girls and women ages 1-70 and 800 IU for women over 70. Very few foods in nature contain vitamin D. The flesh of fatty fish (such as salmon, tuna, and mackerel) and fish liver oils are among the best sources. Small amounts of vitamin D are found in beef liver, cheese, mushrooms and egg yolks. Most people meet at least some of their vitamin D needs through exposure to sunlight. Season, time of day, length of day, cloud cover, smog, skin melanin content, and sunscreen are among the factors thataffect UV radiation exposure and vitamin D synthesis. Despite the importance of the sun for vitaminD synthesis, it is prudent to limit exposure of skin to sunlight and avoid tanning beds. UV radiation is a carcinogen responsible for most of the estimated 1.5 million skin cancers that occur annually in the [place]. Lifetime cumulative UV damage to skin is also responsible for some age-associated dryness and other cosmetic changes. In supplements and fortified foods, vitamin D is available in two forms, D2 (ergocalciferol) and D3(cholecalciferol). The two are equivalent at normal supplement doses. For women who require high supplement doses because of vitamin D deficiency, D3 may work better to raise blood levels. Some medications can prevent proper absorption of Vitamin D. These include laxatives, corticosteroids like prednisone, the seizure drugs phenobarbital and phenytoin, the weight-loss drug orlistat ( Xenical and AlliTM) and the cholesterol-lowering drug cholestyramine (Questran , LoCholest , and Prevalite ). Talk to your doctor about adjusting your recommended daily vitamin D dosage if you take these medications. You should not exceed 4000 mg of vitamin D supplementation daily unless specifically prescribed by your doctor. documented in this encounterUniversity [facility]als [facility]03-19-2025 NoteHNO ID: [id number] Author: GLORIA SAMUELS APRN.CNM Service: ? Author Type: Special Education Resource Room Teacher Type: Progress Notes Filed: 01/20/2025 17:22 Note Text: Dishwasher offered: Patient declines. 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 Still get period: Yes LMP: 01/10/2025, every 28 days, last about 5-7 days. Stopped OCP about 9 months ago because she didn't feel right. Does not think the control was the issus after she stopped using this. 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 History Comments: Sexual Activity: Yes; Male Contraception: Condom Menstrual Tracking History Flowsheet RowAppointment from 01/20/2025 in OB/GynecologyPeriod Cycle (Days) 28 Period Duration (Days) 6 Menstrual Flow Moderate PAST MEDICAL HISTORY Diagnosis Date Menarche 2013 NEGATIVE MEDICAL HISTORY normal color vision PAST SURGICAL HISTORY Procedure Laterality Date NEXPLANON INSERTION 03/27/16 FAMILY HISTORY Problem Relation other (graves) Mother 41 Heart Failure Mother Diabetes Father other (cardiac- unknown) Father other (spine surgery) Father Allergies Sister Allergies Brother Cancer Maternal Grandmother esophageal ? other (lung cancer) Maternal Grandfather smoker No Known Problems Paternal Grandmother No Known Problems Paternal Grandfather SOCIAL HISTORY Social History Tobacco Use Smoking status: Never Smokeless tobacco: Never Vaping Use Vaping status: Some Days Substances: Nicotine Devices: Disposable Substance Use Topics Alcohol use: Yes Comment: Rarely Drug use: No REVIEW OF SYSTEMS Abdomen: No abdominal pain, nausea, vomiting, diarrhea, or constipation. No bloating, early satiety, indigestion, or increased flatulence. Bladder: No dysuria, gross hematuria, urinary frequency, urinary urgency, or incontinence. Breast: No breast lumps, nipple d/c, overlying skin changes, redness or skin retraction. Allergies and current medication updated:Yes SENSITIVE EXAM: The sensitive examination was discussed with the Patient or Patient's Authorized Final Inspection Supervisor. As applicable, any other physician, advance practice provider, medical student, or other health professional student that will be observing or involved in the sensitive examination for educational or training purposes was discussed with the Patient or Authorized Final Inspection Supervisor. The Patient or Authorized Final Inspection Supervisor has agreed to proceed with the sensitive examination. (Sensitive examination includes inspection and/or palpation of the breasts, pelvis, prostate and anorectal regions). EXAM: LMP 01/10/2025 BP 110/60 Ht 167 cm (5' 5.75) Wt 52.2 kg (115 lb) LMP 01/10/2025 BMI 18.70 kg/m? GENERAL: pleasant, female in no apparent distress HEENT: Normocephalic, atraumatic, mucus membranes moist, and no lesions NECK: Supple, full range of motion, no adenopathy, and thyroid normal DERMATOLOGY: Normal, without lesions, non-icteric, and non-hirsute BREAST: soft, non-tender, symmetric, no dominant mass, normal nipple-areolar complex, no lymphadenopathy, and no nipple discharge CHEST: Normal inspiratory effort ABDOMEN: soft, non-tender, and no masses PELVIC: external genitalia normal, normal Bartholin's glands, urethra, [place]'s glands, no vulvar lesions, no cervical lesions, good vaginal support, physiologic discharge present, normal appearing perineal body and perianal region BIMANUAL: uterus normal size, shape and consistency, no adnexal masses, and non-tender NEURO: alert and oriented x3,exam grossly non-focal EXTREMITIES: normal ASSESSMENT/PLAN: 1. Encounter for gynecological examination (general) (routine) without abnormal findings - ICD9: V72.31, ICD10: Z01.419 (primary diagnosis) - Completed pelvic and breast exam - Encouraged monthly BSE - Follow up for annual exam in one year. - PAP TEST - BACTERIAL VAGINOSIS NAAT - FARHAT/TRICHOMONAS NAAT 2. Screening for cervical cancer - ICD9: V76.2, ICD10: Z12.4 - Completed pelvic and breast exam - Encouraged monthly BSE - Follow up for annual exam in one year. - PAP TEST 3. Screen for STD (sexually transmitted disease) - ICD9: V74.5, ICD10: Z11.3 - GONORRHEA/CHLAMYDIA NAAT - FARHAT/TRICHOMONAS NAAT - SYPHILIS TREPONEMAL W/REFLEX - HIV 1/2 COMBO (more content not included)...[facility] 01-20-2025 History of Present illness Narrative* Gloria Samuels APRN.CNM - 01/20/2025 2:35 PM EDT Dishwasher offered: Patient declines. 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 Still get period: Yes LMP: 01/10/2025, every 28 days, last about 5-7 days. Stopped OCP about 9 months ago because she didn't feel right. Does not think the control was the issus after she stopped using this. 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 History Comments: Sexual Activity: Yes; Male Contraception: Condom Menstrual Tracking History Flowsheet RowAppointment from 01/20/2025 in OB/GynecologyPeriod Cycle (Days) 28 Period Duration (Days) 6 Menstrual Flow Moderate PAST MEDICAL HISTORY Diagnosis Date Menarche 2013 NEGATIVE MEDICAL HISTORY normal color vision PAST SURGICAL HISTORY Procedure Laterality Date NEXPLANON INSERTION 03/27/16 FAMILY HISTORY Problem Relation other (graves) Mother 41 Heart Failure Mother Diabetes Father other (cardiac- unknown) Father other (spine surgery) Father Allergies Sister Allergies Brother Cancer Maternal Grandmother esophageal ? other (lung cancer) Maternal Grandfather smoker No Known Problems Paternal Grandmother No Known Problems Paternal Grandfather SOCIAL HISTORY Social History Tobacco Use Smoking status: Never Smokeless tobacco: Never Vaping Use Vaping status: Some Days Substances: Nicotine Devices: Disposable Substance Use Topics Alcohol use: Yes Comment: Rarely Drug use: No REVIEW OF SYSTEMS Abdomen: No abdominal pain, nausea, vomiting, diarrhea, or constipation. No bloating, early satiety, indigestion, or increased flatulence. Bladder: No dysuria, gross hematuria, urinary frequency, urinary urgency, or incontinence. Breast: No breast lumps, nipple d/c, overlying skin changes, redness or skin retraction. Allergies and current medication updated:Yes SENSITIVE EXAM: The sensitive examination was discussed with the Patient or Patient's Authorized Final Inspection Supervisor. As applicable, any other physician, advance practice provider, medical student, or other health professional student that will be observing or involved in the sensitive examination for educational or training purposes was discussed with the Patient or Authorized Final Inspection Supervisor. The Patient or Authorized Final Inspection Supervisor has agreed to proceed with the sensitive examination. (Sensitive examination includes inspection and/or palpation of the breasts, pelvis, prostate and anorectal regions). EXAM: LMP 01/10/2025 BP 110/60 Ht 167 cm (5' 5.75) Wt 52.2 kg (115 lb) LMP 01/10/2025 BMI 18.70 kg/m GENERAL: pleasant, female in no apparent distress HEENT: Normocephalic, atraumatic, mucus membranes moist, and no lesions NECK: Supple, full range of motion, no adenopathy, and thyroid normal DERMATOLOGY: Normal, without lesions, non-icteric, and non-hirsute BREAST: soft, non-tender, symmetric, no dominant mass, normal nipple-areolar complex, no lymphadenopathy, and no nipple discharge CHEST: Normal inspiratory effort ABDOMEN: soft, non-tender, and no masses PELVIC: external genitalia normal, normal Bartholin's glands, urethra, [place]'s glands, no vulvar lesions, no cervical lesions, good vaginal support, physiologic discharge present, normal appearing perineal body and perianal region BIMANUAL: uterus normal size, shape and consistency, no adnexal masses, and non-tender NEURO: alert and oriented x3,exam grossly non-focal EXTREMITIES: normal ASSESSMENT/PLAN: 1. Encounter for gynecological examination (general) (routine) without abnormal findings - ICD9: V72.31, ICD10: Z01.419 (primary diagnosis) - Completed pelvic and breast exam - Encouraged monthly BSE - Follow up for annual exam in one year. - PAP TEST - BACTERIAL VAGINOSIS NAAT - FARHAT/TRICHOMONAS NAAT 2. Screening for cervical cancer - ICD9: V76.2, ICD10: Z12.4 - Completed pelvic and breast exam - Encouraged monthly BSE - Follow up for annual exam in one year. - PAP TEST 3. Screen for STD (sexually transmitted disease) - ICD9: V74.5, ICD10: Z11.3 - GONORRHEA/CHLAMYDIA NAAT - FARHAT/TRICHOMONAS NAAT - SYPHILIS TREPONEMAL W/REFLEX - HIV 1/2 COMBO WITH REFLEX TO DIFFERENTIATION - HEPATITIS C ANTIBODY IA WITH CONFIRMATION - HEPATITIS B SURFACE ANTIGEN 4. control counseling - ICD9: V25.09, ICD10: Z30.09 -Would like to continue condoms at this time 1) Health maintenance: Pap done with reflex HPV. Nutrition, exercise and routine health maintenance exams reviewed. Calcium/Vitamin D supplementation information provided. Lipids/glucose: followed by PCP Vitamin D: followed by PCP 2) Contraception: none. Contraceptive options reviewed and information provided. 3) STD screening: Accepted STD check for Gonorrhea and Chlamydia. 4) Follow up one year or sooner as needed Gloria Samuels APRN.CNM documented in this encounterUniversity [facility]als [facility]06-07-2024 NoteHNO ID: [id number] Author: TAYLOR CARRILLO APRN.CNP Service: ? Author Type: Nurse Practitioner Type: Progress Notes Filed: 04/10/2024 11:01 Note Text: Patient scheduled appointment today to restart oral contraception. However, she saw MEDICATION AIDE and had PAP on 01/06/2024, so I would refer her to MEDICATION AIDE to prescribe this. She has been made aware. Taylor Carrillo APRN.CNPWilson Health06-07-2024 History of Present illness Narrative* Taylor Carrillo APRN.CNP - 04/10/2024 11:00 AM EDT Patient scheduled appointment today to restart oral contraception. However, she saw MEDICATION AIDE and had PAPon 01/06/2024, so I would refer her to MEDICATION AIDE to prescribe this. She has been made aware. Taylor Carrillo APRN.CNP documented in this encounterUniversity [facility]als [facility]03-04-2024 History of Present illness Narrative* Armida Sumner MD - 01/06/2024 12:47 PM EST Dishwasher offered: Patient declines. Early is a 23 year old who presents for an annual gynecologic exam without complaints. Menses: cycles every 28 days and 4 days of flow. Contraception: none HPV vaccine: Yes Last Pap: never HPV: never History of abnormal pap: No Last mammogram: never Sexually active: Never Patient concerns for STD exposure: No. 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 other (lung cancer) Maternal Grandfather smoker No Known Problems Paternal Grandmother No Known Problems Paternal Grandfather SOCIAL HISTORY Social History Tobacco Use Smoking status: Never Smokeless tobacco: Never Vaping Use Vaping Use: Some days Substances: Nicotine Devices: Disposable Substance Use Topics Alcohol use: Yes Comment: Rarely Drug use: No REVIEW OF SYSTEMS Abdomen: No abdominal pain, nausea, vomiting, diarrhea, or constipation. No bloating, early satiety, indigestion, or increased flatulence. Bladder: No dysuria, gross hematuria, urinary frequency, urinary urgency, or incontinence. Breast: No breast lumps, nipple d/c, overlying skin changes, redness or skin retraction. Allergies and current medication updated:Yes EXAM: BP 120/74 Ht 5' 5 (1.65m) Wt 128 lb (58.1kg) LMP 01/03/2024 BMI 21.30 kg/(m^2). GENERAL: pleasant, female in no apparent distress HEENT: Normocephalic and atraumatic NECK: Supple, full range of motion, no adenopathy, and thyroid normal DERMATOLOGY: Normal, without lesions, non-icteric, and non-hirsute BREAST: soft, non-tender, symmetric, no dominant mass, normal nipple-areolar complex, no lymphadenopathy, and no nipple discharge CHEST: Normal inspiratory effort ABDOMEN: soft, non-tender, and no masses PELVIC: external genitalia normal, normal Bartholin's glands, urethra, [place]'s glands, no vulvar lesions, no cervical lesions, good vaginal support, physiologic discharge present, normal appearing perineal body and perianal region BIMANUAL: uterus normal size, shape and consistency, no adnexal masses, and non-tender RECTOVAGINAL: deferred. NEURO: exam grossly non-focal EXTREMITIES: normal ASSESSMENT/PLAN: 1) Health maintenance: Pap done with reflex HPV. Nutrition, exercise and routine health maintenance exams reviewed. HPV vaccine: completed series 2) Contraception: none. Contraceptive options reviewed and information provided. 3) STD screening: Declined STD check. 4) Follow up one year or sooner as needed Armida Sumner DO documented in this encounterUniversity Hospitals [facility]10-20-2023 History of Present illness Narrative* Taylor Carrillo APRN.HOOD MAKER - 08/23/2023 11:10 AM EDT VIRTUAL VISIT PROGRESS NOTE This is a virtual visit using On[employer] Video Visit. It required patient- provider interaction for the medical decision making as documented below. I have communicated my name and active licensure. The patient's identity and physical location wereverified at the time of this visit. Either the patient or their legal account maintenance representative has been informed of the risks and benefits of -- and alternatives to -- treatment through a remote evaluation andconsents to proceed with the evaluation remotely. Pastor Pradhan is a 23 year old female seen for medication follow up. Today: Adderall-feels like her heart is racing with this dose. Denies CP, SOB. Lasts for about an hour. Uses this for focus, organization, makes it such easier at school. Does feel like this is a good dose,but wondering if she would do better with an extended version rather than immediate release and herheart would not feel like it is racing. HISTORY REVIEWED (electronic chart updated): PAST MEDICAL HISTORY Diagnosis Date Menarche 2013 NEGATIVE MEDICAL HISTORY normal color vision PAST SURGICAL HISTORY Procedure Laterality Date NEXPLANON INSERTION 03/27/16 FAMILY HISTORY Problem Relation Age of Onset other (graves) Mother 41 Diabetes Father other (cardiac- unknown) Father other (spine surgery) Father Allergies Sister Allergies Brother Cancer Maternal Grandmother esophageal ? other (lung cancer) Maternal Grandfather smoker No Known Problems Paternal Grandmother No Known Problems Paternal Grandfather Social History Tobacco Use Smoking status: Never Smokeless tobacco: Never Vaping Use Vaping Use: Some days Substance Use Topics Alcohol use: Yes Comment: Rarely Drug use: No Current Outpatient Medications Medication Sig Levonorgestrel-Ethinyl Estrad (LARISSIA) 0.1mg - 20mcg per tablet Take 1 tablet by mouth once daily. dextroamphetamine-amphetamine (ADDERALL) 10 mg tablet Take 1 tablet by mouth once daily for 30 days. spironolactone (ALDACTONE) 50 mg tablet Take 1 tablet by mouth once daily. busPIRone (BUSPAR) 5 mg tablet Take 1 tablet by mouth three times daily. For panic attack buPROPion SR (WELLBUTRIN SR) 150 mg 12 hr tablet Take 1 tablet by mouth twice daily. cranberry conc-ascorbic acid 4,200-20 mg cap Take by mouth as needed. Every other day No current facility-administered medications for this visit. ALLERGIES No Known Allergies REVIEW OF SYSTEMS: All other ROS: negative As noted in HPI PHYSICAL EXAMINATION: VIDEO EXAM: (if completed, performed via video enabled technology) Pleasant, cooperative ASSESSMENT: (F98.8) Attention deficit disorder (ADD) in adult (primary encounter diagnosis) (L70.0) Cystic acne PLAN: Change Adderall to extended version 10mg. Refill of chronic spironolactone rx for her acne. Follow up in 1 month, sooner if necessary. PDMP website checked and validated. All prescriptions have been APPROPRIATELY filled. No suspiciousactivity was identified. 08/23/2023 by Taylor Carrillo CNP. Taylor Carrillo APRN.JAYCE documented in this encounterUniversity Hospitals [facility]10-09-2023 Miscellaneous Notes* Telephone Encounter - Darlene Frias LPN - 08/12/2023 3:16 PM EDT Spoke with pt and information listed below given. Pt verbalizes understanding. Pt booked a virtual apt for 08-16-23. Darlene Frias LPN * Telephone Encounter - Luly Goodwin APRN.CNP - 08/12/2023 2:43 PM EDT Needs to be seen every 6 months to refill. Rx denied. The following approved medication requests have been transmitted electronically. Requested Prescriptions Refused Prescriptions Disp Refills dextroamphetamine-amphetamine (ADDERALL) 10 mg tablet 30 tablet 0 Sig: Take 1 tablet by mouth once daily for 30 days. Refused By: LULY GOODWIN Reason for Refusal: Patient needs appointment Luly Goodwin APRN.JAYCE * Telephone Encounter - Mell Ricketts Ma - 08/09/2023 3:12 PM EDT Patient last visit with PCP 01/02/23 Follow up appointment scheduled daniel Ricketts Ma documented in this [facility]09-06-2023 Miscellaneous Notes* Telephone Encounter - Eliezer Freeman LPN - 07/10/2023 5:14 PM EDT See Telephone note documented in this [facility]08-17-2023 Miscellaneous Notes* Telephone Encounter - Luly Goodwin APRN.CNP - 06/20/2023 10:20 AM EDT Will discuss at appointment tomorrow. Thank you, Luly Goodwin APRN.HOOD MAKER documented in this [facility]08-16-2023 Miscellaneous Notes* Telephone Encounter - Samantha Mejia - 06/19/2023 9:47 AM EDT Pt scheduled Samantha Mejia documented in this [facility]08-03-2023 Miscellaneous Notes* Telephone Encounter - Luciana Thomason LPN - 06/06/2023 1:59 PM EDT Patient phones requesting refills as follows: Requested Prescriptions Pending Prescriptions Disp Refills Levonorgestrel-Ethinyl Estrad (LARISSIA) 0.1mg - 20mcg per tablet 84 tablet 2 Sig: Take 1 tablet by mouth once daily. JOSHUA-01/02/23 Labs-05/04/22 NOV-none Please review and advise. Luciana Thomason LPN documented in this [facility]07-03-2023 Miscellaneous Notes* Telephone Encounter - Taylor Carrillo APRN.CNP - 05/06/2023 2:38 PM EDT The following approved medication requests have been transmitted electronically. Requested Prescriptions Signed Prescriptions Disp Refills dextroamphetamine-amphetamine (ADDERALL) 10 mg tablet 30 tablet 0 Sig: Take 1 tablet by mouth once daily for 30 days. Authorizing Provider: TAYLOR CARRILLO APRN.CNP PDMP website checked and validated. All prescriptions have been APPROPRIATELY filled. No suspiciousactivity was identified. 05/06/2023 by Taylor Carrillo CNP. * Telephone Encounter - Darlene Frias LPN - 05/06/2023 8:01 AM EDT Patient has been identified by name and date of : Yes, Provider Dr. Pereyra Date 05/06/23 Time 8:29 am Patient phones for refill(s): Requested Prescriptions Pending Prescriptions Disp Refills dextroamphetamine-amphetamine (ADDERALL) 10 mg tablet 30 tablet 0 Sig: Take 1 tablet by mouth once daily for 30 days. Date of last office visit in primary care: 01/02/23 Last 2 Encounter Wt Readings: Date: Wt: 05/04/2022 48.4 kg (106 lb 9.6 oz) 05/24/2021 50.3 kg (111 lb) Previous labs/tests for medication: Not applicable Thank you. Darlene Frias LPN documented in this encounterUniversity Hospitals [facility]04-10-2023 Miscellaneous Notes* Telephone Encounter - Chapis Ricci LPN - 02/11/2023 1:41 PM EDT Rec'd fax approval for dextroamphetamine-amphetamine 10 mg approved from 02/08/23 to 02/08/2024. documented in this encounterUniversity Hospitals [facility]04-04-2023 Miscellaneous Notes* Telephone Encounter - Eliezer Freeman LPN - 02/05/2023 1:44 PM EDT Patient has been identified by name and date of : Patient phones for refill(s): Requested Prescriptions Pending Prescriptions Disp Refills busPIRone (BUSPAR) 5 mg tablet 60 tablet 1 Sig: Take 1 tablet by mouth three times daily. For panic attack Date of last office visit in primary care: 01/02/23 Last 2 Encounter Wt Readings: Date: Wt: 05/04/2022 48.4 kg (106 lb 9.6 oz) 05/24/2021 50.3 kg (111 lb) Previous labs/tests for medication: Not applicable Please advise. Thank you. Eliezer Freeman LPN documented in this encounterUniversity Hospitals [facility]04-04-2023 Miscellaneous Notes* Telephone Encounter - Jerrod Bland MD - 02/05/2023 11:16 AM EDT OK to refill as ordered Jerrod Bland MD * Telephone Encounter - Mayra Busby LPN - 02/05/2023 9:57 AM EDT Patient has been identified by name and date of : Yes Patient phones for refill(s): Requested Prescriptions Pending Prescriptions Disp Refills dextroamphetamine-amphetamine (ADDERALL) 10 mg tablet 30 tablet 0 Sig: Take 1 tablet by mouth once daily for 30 days. Date of last office visit in primary care: 01/02/2023 Please advise. Thank you. Mayra Busby LPN documented in this encounterUniversity Hospitals [facility]03-03-2023 Miscellaneous Notes* Telephone Encounter - Yesenia Mantilla LPN - 01/04/2023 1:19 PM EST Joshua--01/02/23 Nov--nothing scheduled Last refill-- Last labs-- documented in this encounterUniversity Hospitals [facility]03-01-2023 History of Present illness Narrative* Taylor Carrillo APRN.HOOD MAKER - 01/02/2023 3:12 PM EST VIRTUAL VISIT PROGRESS NOTE This is a virtual visit using [employer] video visit. It required patient-provider interaction for themedical decision making as documented below. Pastor Pradhan is a 22 year old female seen for medication follow up. Today: Needs to follow up on her Adderall-takes 10mg daily. Is a good dose and gets rid of her brain fog. Denies any side effects. Would like a refill of her oral contraception. HISTORY REVIEWED (electronic chart updated): PAST MEDICAL HISTORY Diagnosis Date Menarche 2013 NEGATIVE MEDICAL HISTORY normal color vision PAST SURGICAL HISTORY Procedure Laterality Date NEXPLANON INSERTION 03/27/16 FAMILY HISTORY Problem Relation Age of Onset other (graves) Mother 41 Diabetes Father other (cardiac- unknown) Father other (spine surgery) Father Allergies Sister Allergies Brother Cancer Maternal Grandmother esophageal ? other (lung cancer) Maternal Grandfather smoker No Known Problems Paternal Grandmother No Known Problems Paternal Grandfather Social History Tobacco Use Smoking status: Never Smokeless tobacco: Never Vaping Use Vaping Use: Some days Substance Use Topics Alcohol use: Yes Comment: Rarely Drug use: No Current Outpatient Medications Medication Sig dextroamphetamine-amphetamine (ADDERALL) 10 mg tablet Take 1 tablet by mouth once daily for 30 days. Levonorgestrel-Ethinyl Estrad (LARISSIA) 0.1mg - 20mcg per tablet Take 1 tablet by mouth once daily. busPIRone (BUSPAR) 5 mg tablet Take 1 tablet by mouth three times daily. For panic attack buPROPion SR (WELLBUTRIN SR) 150 mg 12 hr tablet Take 1 tablet by mouth twice daily. cranberry conc-ascorbic acid 4,200-20 mg cap Take by mouth as needed. Every other day No current facility-administered medications for this visit. ALLERGIES No Known Allergies REVIEW OF SYSTEMS: All other ROS: negative As noted in HPI PHYSICAL EXAMINATION: VIDEO EXAM: (if completed, performed via video enabled technology) No exam performed ASSESSMENT: (F98.8) Attention deficit disorder (ADD) in adult (primary encounter diagnosis) (Z30.41) Encounter for surveillance of contraceptive pills PLAN: Refill given for Adderall, follow up in 6 months, sooner if necessary. Refill given for oral contraceptive pills. Taylor Carrillo APRN.CNP documented in this encounterUniversity Hospitals [facility]01-18-2023 Miscellaneous Notes* Telephone Encounter - Taylor Carrillo APRN.CNP - 11/21/2022 7:38 AM EST See separate MyChart encounter from 11/20. Taylor Carrillo APRN.CNP documented in this encounterUniversity Hospitals [facility]01-11-2023 Miscellaneous Notes* Telephone Encounter - Taylor Carrillo APRN.CNP - 11/14/2022 1:29 PM EST The following approved medication requests have been transmitted electronically. Requested Prescriptions Signed Prescriptions Disp Refills dextroamphetamine-amphetamine (ADDERALL) 10 mg tablet 30 tablet 0 Sig: Take 1 tablet by mouth once daily for 30 days. Taylor Carrillo APRN.CNP PDMP website checked and validated. All prescriptions have been APPROPRIATELY filled. No suspiciousactivity was identified. 11/14/2022 by Taylor Carrillo CNP. documented in this encounterUniversity Hospitals [facility]12-28-2022 History of Present illness Narrative* Divya Gibbs LPN - 10/31/2022 10:00 AM EST Patient presents for Meningococcal B vaccine. Denies any problems at this time. Tolerated injectionwell. Divya Gibbs LPN documented in this encounterUniversity Hospitals [facility] Center12-22-2022 Miscellaneous Notes* Telephone Encounter - Yesenia Mantilla LPN - 10/25/2022 2:17 PM EST Joshua--05/04/22 Nov--10/31/22 Last refill--10/25/22 this appears to hasve be already refilled today Last labs-- * Telephone Encounter - Audie Pereyra DO - 10/24/2022 9:10 PM EST Patient needs visit. Hasn't been seen in almost 6 months, please schedule virtual or in office withNP Audie Pereyra DO * Telephone Encounter - Luciana Thomason LPN - 10/22/2022 3:28 PM EST Patient phones requesting refills as follows: Requested Prescriptions Pending Prescriptions Disp Refills amphetamine-dextroamphetamine 15 mg tablet 30 tablet 0 Sig: Take 1 tablet by mouth once daily for 30 days. JOSHUA-05/04/22 Labs-05/04/22 NOV-none med filled 09/20/22 Please review and advise. Luciana Thomason LPN documented in this encounterUniversity Hospitals [facility] Center12-22-2022 Miscellaneous Notes* Telephone Encounter - Taylor Carrillo APRN.CNP - 10/25/2022 11:15 AM EST The following approved medication requests have been transmitted electronically. Requested Prescriptions Signed Prescriptions Disp Refills amphetamine-dextroamphetamine 15 mg tablet 30 tablet 0 Sig: Take 1 tablet by mouth once daily for 30 days. Authorizing Provider: TAYLOR CARRILLO APRN.CNP PDMP website checked and validated. All prescriptions have been APPROPRIATELY filled. No suspiciousactivity was identified. 10/25/2022 by Taylor Carrillo CNP. * Telephone Encounter - Juhi Muse Pss - 10/23/2022 2:10 PM EST Left message with mother that vaccine orders have been placed. Patient to schedule at her convenience. * Telephone Encounter - Paola Garsia LPN - 10/23/2022 11:35 AM EST Patient phones requesting refills as follows: Requested Prescriptions Pending Prescriptions Disp Refills amphetamine-dextroamphetamine 15 mg tablet 30 tablet 0 Sig: Take 1 tablet by mouth once daily for 30 days. JOSHUA 05/10/22 No upcoming appointment scheduled. Please review and advise. Paola Garsia LPN documented in this encounterUniversity Hospitals [facility]11-30-2022 Miscellaneous Notes* Telephone Encounter - Amarilys Mueller Ma - 10/03/2022 12:32 PM EST Last office visit: 05/04/22 F/u scheduled: none Amarilys Mueller Ma documented in this encounterUniversity Hospitals [facility] Center11-17-2022 Miscellaneous Notes* Telephone Encounter - Taylor Carrillo APRN.JAYCE - 09/20/2022 12:34 PM EST The following approved medication requests have been transmitted electronically. Requested Prescriptions Signed Prescriptions Disp Refills amphetamine-dextroamphetamine 15 mg tablet 30 tablet 0 Sig: Take 1 tablet by mouth once daily for 30 days. Authorizing Provider: TAYLOR CARRILLO APRN.CNP PDMP website checked and validated. All prescriptions have been APPROPRIATELY filled. No suspiciousactivity was identified. 09/20/2022 by Taylor Carrillo CNP. * Telephone Encounter - Yesenia Mantilla LPN - 09/19/2022 12:26 PM EST Joshua--05/04/22 Nov--nothing scheduled Last refill-=-08/02/22 30 with 0 refills Last labs--05/04/22 documented in this encounterUniversity Hospitals [facility]11-14-2022 Miscellaneous Notes* Telephone Encounter - Yesenia Mantilla LPN - 09/17/2022 10:38 AM EST Joshua--05/04/22 Nov--nothing scheduled Last refill--08/02/22 30 with 0 refills Last labs--05/04/22 documented in this encounterUniversity Hospitals [facility]09-29-2022 Miscellaneous Notes* Addendum Note - Taylor Carrillo APRN.CNP - 08/02/2022 5:26 PM EDTAddended by: TAYLOR CARRILLO on: 08/02/2022 05:26 PM Modules accepted: Orders * Addendum Note - Samantha Morgan Ma - 08/02/2022 5:13 PM EDTAddended by: SAMANTHA MORGAN MA on: 08/02/2022 05:13 PM Modules accepted: Orders * Telephone Encounter - Taylor Carrillo APRN.CNP - 08/02/2022 4:53 PM EDT The following approved medication requests have been transmitted electronically. Requested Prescriptions Signed Prescriptions Disp Refills amphetamine-dextroamphetamine 15 mg tablet 30 tablet 0 Sig: Take 1 tablet by mouth once daily for 30 days. Taylor Carrillo APRN.CNP PDMP website checked and validated. All prescriptions have been APPROPRIATELY filled. No suspiciousactivity was identified. 08/02/2022 by Taylor Carrillo CNP. documented in this encounterUniversity Hospitals [facility] Center09-12-2022 Miscellaneous Notes* Telephone Encounter - Luly Bliss APRN.CNP - 07/16/2022 9:46 AM EDT PDMP website checked and validated. All prescriptions have been APPROPRIATELY filled. No suspiciousactivity was identified. 07/16/2022 by Luly Bliss APRN.CNP The following approved medication requests have been transmitted electronically. Requested Prescriptions Signed Prescriptions Disp Refills dextroamphetamine-amphetamine (ADDERALL) 10 mg tablet 30 tablet 0 Sig: Take 1 tablet by mouth once daily for 30 days. Authorizing Provider: LULY BLISS APRN.CNP * Telephone Encounter - Giuseppe Vaughan Ma - 07/16/2022 8:20 AM EDT JOSHUA: 05/04/2022 NOV: none scheduled. Last refill: 06/07/2022 QTY: 30 Refills: 0 Patient's request for medication is as follows: Requested Prescriptions Pending Prescriptions Disp Refills dextroamphetamine-amphetamine (ADDERALL) 10 mg tablet 30 tablet 0 Sig: Take 1 tablet by mouth once daily for 30 days. Please approve the above prescription(s) to electronically send to pharmacy. Giuseppe Vaughan Ma documented in this encounterUniversity Hospitals [facility]08-10-2022 History of Present illness Narrative* Divya Gibbs LPN - 06/13/2022 9:29 AM EDT Patient presents for multiple vaccines. Denies any problems at this time. Tolerated injections well. Divya Gibbs LPN documented in this encounterUniversity Hospitals [facility] Center07-28-2022 Miscellaneous Notes* Telephone Encounter - Taylor Carrillo APRN.CNP - 05/31/2022 2:49 PM EDT Orders placed. Taylor Carrillo APRN.CNP\ * Telephone Encounter - Divya Gibbs LPN - 05/31/2022 1:45 PM EDT Patient scheduled for nurse visit 06/13/22 to receive MMRV and Meningococcal B vaccines. Please place order at this time. Divya Gibbs LPN documented in this encounterUniversity Hospitals [facility] Center07-19-2022 Miscellaneous Notes* Telephone Encounter - Alena Frias LPN - 05/22/2022 8:53 AM EDT Patient has been identified by name and date of : Yes Pending Prescriptions Disp Refills BUSPIRONE 5 MG TABLET 60 tablet 1 Sig: Take 1 tablet by mouth three times daily. For panic attack DANY: No Buspar 05/17/2021 qty 60 w/ 1 r/f Last OV 05/04/2022 Next OV none scheduled RX INSTRUCTIONS: Alena Frias LPN documented in this encounterUniversity Hospitals [facility] Center07-12-2022 History of Present illness Narrative* Divya Gibbs LPN - 05/15/2022 1:05 PM EDT Patient presents for Hep B and MMRV vaccines. Denies any problems at this time. Tolerated injections well. Divya Gibbs LPN documented in this encounterUniversity Hospitals [facility] Center07-07-2022 Miscellaneous Notes* Telephone Encounter - Danay Raman - 05/10/2022 12:58 PM EDT 1st attempt to schedule a nurse visit. LVALCB Thank you, Danay Raman * Telephone Encounter - Eliezer Freeman LPN - 05/09/2022 3:22 PM EDT Please schedule Nurse Visit. Eliezer Freeman LPN * Telephone Encounter - Taylor Carrillo APRN.CNP - 05/09/2022 1:40 PM EDT She will need to have her Hepatitis B, MMR, and Varicella, as these were not detected in her blood. I have them ordered, please assist her to schedule to receive the vaccines. 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 She can see results on my chart and not sure which immunizations she is needing to have done. Please advise documented in this encounterUniversity Hospitals [facility] Center07-04-2022 Miscellaneous Notes* Telephone Encounter - KAMILA Stout - 05/07/2022 2:56 PM EDT Fasting labs done 05/04 * Telephone Encounter - Ashley Meyer - 05/02/2022 9:46 AM EDT 1st Attempt: Called PT to schedule fasting labs, LVM for PT to call back and schedule. * Telephone Encounter - Audie Pereyra DO - 04/30/2022 8:47 AM EDT Orders for fasting labs placed Audie Pereyra DO * Telephone Encounter - Liv Villanueva Pss - 04/30/2022 7:52 AM EDT Please enter routine lab orders for patient. Contact coutierier when complete. Liv Lewis documented in this encounterUniversity Hospitals [facility] Center06-27-2022 Miscellaneous Notes* Telephone Encounter - Luly Bliss APRN.CNP - 04/30/2022 11:07 AM EDT PDMP website checked and validated. All prescriptions have been APPROPRIATELY filled. No suspiciousactivity was identified. 04/30/2022 by Luly Bliss APRN.CNP The following approved medication requests have been transmitted electronically. Signed Prescriptions Disp Refills dextroamphetamine-amphetamine (ADDERALL) 10 mg tablet 30 tablet 0 Sig: Take 1 tablet by mouth once daily for 30 days. DEEPALI Class: C-II DANY: No Authorizing Provider: LULY BLISS APRN.CNP * Telephone Encounter - MICHAEL Chow - 04/30/2022 11:02 AM EDT Patient has been identified by name and date of : Yes Patient phones for refill(s): Pending Prescriptions Disp Refills DEXTROAMPHETAMINE-AMPHETAMINE 10 MG TABLET 30 tablet 0 Sig: Take 1 tablet by mouth once daily for 30 days. DEEPALI Class: C-II DANY: No Date of last office visit in primary care: JOSHUA 05/17/2021 VV 02/26/2022 NOV - cancelled Last 2 Encounter Wt Readings: Date: Wt: 05/24/2021 50.3 kg (111 lb) 05/17/2021 51.3 kg (113 lb 3.2 oz) Please advise. Thank you. MICHAEL Chow documented in this encounterUniversity Hospitals [facility] Center06-27-2022 Miscellaneous Notes* Telephone Encounter - MICHAEL Chow - 04/30/2022 11:07 AM EDT Patient has been identified by name and date of : Yes Patient phones for refill(s): Pending Prescriptions Disp Refills LEVONORGESTREL-ETHINYL ESTRADIOL 0.1 MG-20 MCG TABLET 84 tablet 0 Sig: Take 1 tablet by mouth once daily. DANY: No Date of last office visit in primary care: JOSHUA 05/17/2021 VV 02/26/2022 NOV 04/30/2022 - cancelled Last 2 Encounter Wt Readings: Date: Wt: 05/24/2021 50.3 kg (111 lb) 05/17/2021 51.3 kg (113 lb 3.2 oz) Please advise. Thank you. MICHAEL Chow documented in this encounterUniversity Hospitals [facility] Center06-02-2022 Miscellaneous Notes* Telephone Encounter - Samantha Morgan Ma - 04/05/2022 10:31 AM EDT See pt update Samantha Morgan Ma documented in this encounterUniversity Hospitals [facility]06-01-2022 Miscellaneous Notes* Telephone Encounter - Luly Bliss APRN.CNP - 04/04/2022 12:36 PM EDT PDMP website checked and validated. All prescriptions have been APPROPRIATELY filled. No suspiciousactivity was identified. 04/04/2022 by Luly Bliss APRN.CNP The following approved medication requests have been transmitted electronically. Signed Prescriptions Disp Refills dextroamphetamine-amphetamine (ADDERALL) 10 mg tablet 30 tablet 0 Sig: Take 1 tablet by mouth once daily for 30 days. DEEPALI Class: C-II DANY: No Authorizing Provider: LULY BLISS APRN.CNP * Telephone Encounter - MICHAEL Chow - 04/03/2022 1:30 PM EDT Patient has been identified by name and date of : Yes Patient phones for refill(s): Pending Prescriptions Disp Refills DEXTROAMPHETAMINE-AMPHETAMINE 10 MG TABLET 30 tablet 0 Sig: Take 1 tablet by mouth once daily for 30 days. DEEPALI Class: C-II DANY: No Date of last office visit in primary care: VV 02/26/2022 JOSHUA 05/17/2021 No appointment scheduled at this time Last 2 Encounter Wt Readings: Date: Wt: 05/24/2021 50.3 kg (111 lb) 05/17/2021 51.3 kg (113 lb 3.2 oz) Please advise. Thank you. MICHAEL Chow documented in this encounterUniversity [facility] History of Present illness Narrative* Taylor Carrillo APRN.JAYCE - 02/26/2022 9:12 AM EDT VIRTUAL VISIT PROGRESS NOTE This is a virtual visit using Oration video visit. It required patient-provider interaction for themedical decision making as documented below. 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 Today: Started low dose Adderall over the past month. Has been on it for about 3 weeks. Noticed an improvement over the first week, but doesn't seem to be doing much anymore. Wondering if this can beincreased. Denies any adverse side effects; tolerating well. HISTORY REVIEWED (electronic chart updated): PAST MEDICAL HISTORY Diagnosis Date Menarche 2013 NEGATIVE MEDICAL HISTORY normal color vision PAST SURGICAL HISTORY Procedure Laterality Date NEXPLANON INSERTION 03/27/16 FAMILY HISTORY Problem Relation Age of Onset other (graves) Mother 41 Diabetes Father other (cardiac- unknown) Father other (spine surgery) Father Allergies Sister Allergies Brother Cancer Maternal Grandmother esophageal ? other (lung cancer) Maternal Grandfather smoker No Known Problems Paternal Grandmother No Known Problems Paternal Grandfather Social History Tobacco Use Smoking status: Never Smoker Smokeless tobacco: Never Used Vaping Use Vaping Use: Some days Substance Use Topics Alcohol use: Yes Comment: Rarely Drug use: No Current Outpatient Medications Medication Sig Levonorgestrel-Ethinyl Estrad (LARISSIA) 0.1mg - 20mcg per tablet Take 1 tablet by mouth once daily. dextroamphetamine-amphetamine (ADDERALL) 5 mg tablet Take 1 tablet by mouth once daily for 30 days. DULoxetine (CYMBALTA) 30 mg capsule Take 1 capsule by mouth once daily. buPROPion SR (WELLBUTRIN SR) 150 mg 12 hr tablet Take 1 tablet by mouth twice daily. busPIRone (BUSPAR) 5 mg tablet Take 1 tablet by mouth three times daily. For panic attack cranberry conc-ascorbic acid 4,200-20 mg cap Take by mouth as needed. Every other day No current facility-administered medications for this visit. ALLERGIES No Known Allergies REVIEW OF SYSTEMS: All other ROS: negative As noted in HPI PHYSICAL EXAMINATION: VIDEO EXAM: (if completed, performed via video enabled technology) GENERAL: alert and appropriate, in no distress, well-hydrated, well nourished and happy, smiling, interactive HEAD: normocephalic, no abnormality or lesion noted ASSESSMENT: (F98.8) Attention deficit disorder (ADD) in adult (primary encounter diagnosis) PLAN: Increase Adderall to 10mg daily. She will follow up in 1 month with update. May consider increasingat that point as well. PDMP website checked and validated. All prescriptions have been APPROPRIATELY filled. No suspiciousactivity was identified. 02/26/2022 by Taylor Carrillo CNP. Taylor Carrillo APRN.JAYCE documented in this encounterUniversity [facility]als [facility]04-11-2022 Miscellaneous Notes* Telephone Encounter - Ivanna Aguilar MA - 02/12/2022 10:46 AM EDT Patient has been identified by name and date of : Yes Pending Prescriptions Disp Refills LEVONORGESTREL-ETHINYL ESTRADIOL 0.1 MG-20 MCG TABLET 84 tablet 0 Sig: Take 1 tablet by mouth once daily. DANY: No RX INSTRUCTIONS: Patient aware RX will be sent to pharmacy. No need to notify patient. Ivanna Aguilar MA Joshua: 01/2022 Nov: 02/2022 Last refill: 84 tablets documented [facility]* Diagnosis Encounter for initial prescription of contraceptive pills General counseling for prescription of oral contraceptives documented in this encounter [facility] note* Diagnosis Attention deficit disorder (ADD) in adult- Primary [facility] Diagnosis Attention deficit disorder (ADD) in adult documented in this encounter [facility]* Diagnosis Attention deficit disorder (ADD) in adult documented in this encounter [facility]* Diagnosis Encounter for initial prescription of contraceptive pills General counseling for prescription of oral contraceptives documented in this encounter [facility] note* Diagnosis Well adult exam- Primary Routine general medical examination at a health care facility documented in this encounter [facility]* Diagnosis Immunity status testing- Primary Antibody response examination Abnormal antibody titer Other and unspecified nonspecific immunological findings documented in this encounter [facility]* Diagnosis Need for vaccination- Primary Need for prophylactic vaccination and inoculation against unspecified single disease [facility] Diagnosis Anxiety with depression Situational anxiety Other anxiety states documented in this encounter [facility]* Diagnosis Need for vaccination- Primary Need for prophylactic vaccination and inoculation against unspecified single disease [facility]* Diagnosis Need for vaccination- Primary Need for prophylactic vaccination and inoculation against unspecified single disease documented in this encounter [facility]* Diagnosis Attention deficit disorder (ADD) in adult documented [facility]* Diagnosis Attention deficit disorder (ADD) in adult- Primary [facility]* Diagnosis Attention deficit disorder (ADD) in adult [facility]* Diagnosis Attention deficit disorder (ADD) in adult [facility]* Diagnosis Encounter for initial prescription of contraceptive pills General counseling for prescription of oral contraceptives documented in this encounter [facility] noteNo assessment information availableWBarnesville Hospital Work Phone: Evaluation note* Diagnosis Attention deficit disorder (ADD) in adult documented in this encounter [facility]* Diagnosis Need for vaccination- Primary Need for prophylactic vaccination and inoculation against unspecified single disease [facility] Attention deficit disorder (ADD) in adult- Primary documented [facility] encounter [facility]* Diagnosis Attention deficit disorder (ADD) in adult Need for vaccination Need for prophylactic vaccination and inoculation against unspecified single disease documented [facility] this [facility]* Diagnosis Attention deficit disorder (ADD) in adult- Primary Encounter for surveillance of contraceptive pills Surveillance of previously prescribed contraceptive pill documented in this encounter [facility]* Diagnosis Anxiety with depression Situational anxiety Other anxiety states documented in this encounter [facility]* Diagnosis Encounter for surveillance of contraceptive pills Surveillance of previously prescribed contraceptive pill documented in this encounter [facility]* Diagnosis Attention deficit disorder (ADD) in adult documented in this encounter [facility]* Diagnosis Attention deficit disorder (ADD) in adult- Primary Cystic acne Other acne documented in this encounter [facility]* Diagnosis Encounter for gynecological examination (general) (routine) without abnormal findings- Primary Screening for cervical cancer Screening for malignant neoplasm of the cervix Encounter for screening for human papillomavirus (HPV) Special screening examination for human papillomavirus (HPV) documented in this encounter [facility] Diagnosis Encounter for surveillance of contraceptive pills Surveillance of previously prescribed contraceptive pill documented in this encounter [facility]* Diagnosis Encounter for gynecological examination (general) (routine) without abnormal findings- Primary Screening for cervical cancer Screening for malignant neoplasm of the cervix Screen for STD (sexually transmitted disease) Screening examination for venereal disease control counseling General counseling for initiation of other contraceptive measures documented in this encounter [facility] for referral (narrative)No reason for referral information availableFranciscan Health [facility] Work Phone: Summary Purpose Family History No Family History Records Found Relationship Condition Age at Onset Recorded Date/T shanon Not Specified Graves' disease Unknown Congestive heart failure Unknown Malignant neoplasm Unknown Advance Directives No Advanced Directives Records FoundNo Advanced Directives Records FoundNo Advanced Directives Records FoundNo Advanced Directives Records FoundNo Advanced Directives Records Found Chief Complaint and Reason for Visit Chief Complaint Admit Date CONCERN FOR UTI May 03, 2025 7:44 am Additional Source Comments INFORMATION SOURCE (unrecogn ized section and content) DATE CREATED AUTHOR 04/29/2018 [facility] [employer] DATE CREATED AUTHOR AUTHOR'S ORGANIZ ATION 04/30/2018 [facility] DATE CREATED AUTHOR AUTHOR'S ORGANIZ ATION 05/13/2023 [facility] DATE CREATED AUTHOR AUTHOR'S ORGANIZ ATION 01/30/2025 [facility] DATE CREATED AUTHOR AUTHOR'S ORGANIZ ATION 05/07/2025 [facility] Source Comments (unrecognize d section and content) In the event this informatio n is protected by the Federal Confidentiality of Alcohol and Drug Abuse Patient Records regulations: The Federal rules restrict any use of the information to criminally investigate or prosecute any alcohol or drug abuse patient.[facility] CenterIn the event this information is protected by the Federal Confidentiality of Alcohol and Drug Abuse Patient Records regulations: The Federal rules restrict any use of the information to criminally investigate or prosecute any alcohol or drug abuse patient.[facility] CenterIn the event this information is protected by the Federal Confidentiality of Alcohol and Drug Abuse Patient Records regulations: The Federal rules restrict any use of the information to criminally investigate or prosecute any alcohol or drug abuse patient.[facility] CenterIn the event this information is protected by the Federal Confidentiality of Alcohol and Drug Abuse Patient Records regulations: The Federal rules restrict any use of the information to criminally investigate or prosecute any alcohol or drug abuse patient.[facility] CenterIn the event this information is protected by the Federal Confidentiality of Alcohol and Drug Abuse Patient Records regulations: The Federal rules restrict any use of the information to criminally investigate or prosecute any alcohol or drug abuse patient.[facility] CenterIn the event this information is protected by the Federal Confidentiality of Alcohol and Drug Abuse Patient Records regulations: The Federal rules restrict any use of the information to criminally investigate or prosecute any alcohol or drug abuse patient.[facility] CenterIn the event this information is protected by the Federal Confidentiality of Alcohol and Drug Abuse Patient Records regulations: The Federal rules restrict any use of the information to criminally investigate or prosecute any alcohol or drug abuse patient.[facility] CenterIn the event this information is protected by the Federal Confidentiality of Alcohol and Drug Abuse Patient Records regulations: The Federal rules restrict any use of the information to criminally investigate or prosecute any alcohol or drug abuse patient.[facility] CenterIn the event this information is protected by the Federal Confidentiality of Alcohol and Drug Abuse Patient Records regulations: The Federal rules restrict any use of the information to criminally investigate or prosecute any alcohol or drug abuse patient.[facility] CenterIn the event this information is protected by the Federal Confidentiality of Alcohol and Drug Abuse Patient Records regulations: The Federal rules restrict any use of the information to criminally investigate or prosecute any alcohol or drug abuse patient.[facility] CenterIn the event this information is protected by the Federal Confidentiality of Alcohol and Drug Abuse Patient Records regulations: The Federal rules restrict any use of the information to criminally investigate or prosecute any alcohol or drug abuse patient.[facility] CenterIn the event this information is protected by the Federal Confidentiality of Alcohol and Drug Abuse Patient Records regulations: The Federal rules restrict any use of the information to criminally investigate or prosecute any alcohol or drug abuse patient.[facility] CenterIn the event this information is protected by the Federal Confidentiality of Alcohol and Drug Abuse Patient Records regulations: The Federal rules restrict any use of the information to criminally investigate or prosecute any alcohol or drug abuse patient.[facility] CenterIn the event this information is protected by the Federal Confidentiality of Alcohol and Drug Abuse Patient Records regulations: The Federal rules restrict any use of the information to criminally investigate or prosecute any alcohol or drug abuse patient.[facility] CenterIn the event this information is protected by the Federal Confidentiality of Alcohol and Drug Abuse Patient Records regulations: The Federal rules restrict any use of the information to criminally investigate or prosecute any alcohol or drug abuse patient.[facility] CenterIn the event this information is protected by the Federal Confidentiality of Alcohol and Drug Abuse Patient Records regulations: The Federal rules restrict any use of the information to criminally investigate or prosecute any alcohol or drug abuse patient.[facility] CenterIn the event this information is protected by the Federal Confidentiality of Alcohol and Drug Abuse Patient Records regulations: The Federal rules restrict any use of the information to criminally investigate or prosecute any alcohol or drug abuse patient.[facility] CenterIn the event this information is protected by the Federal Confidentiality of Alcohol and Drug Abuse Patient Records regulations: The Federal rules restrict any use of the information to criminally investigate or prosecute any alcohol or drug abuse patient.[facility] CenterIn the event this information is protected by the Federal Confidentiality of Alcohol and Drug Abuse Patient Records regulations: The Federal rules restrict any use of the information to criminally investigate or prosecute any alcohol or drug abuse patient.[facility] CenterIn the event this information is protected by the Federal Confidentiality of Alcohol and Drug Abuse Patient Records regulations: The Federal rules restrict any use of the information to criminally investigate or prosecute any alcohol or drug abuse patient.[facility] CenterIn the event this information is protected by the Federal Confidentiality of Alcohol and Drug Abuse Patient Records regulations: The Federal rules restrict any use of the information to criminally investigate or prosecute any alcohol or drug abuse patient.[facility] CenterIn the event this information is protected by the Federal Confidentiality of Alcohol and Drug Abuse Patient Records regulations: The Federal rules restrict any use of the information to criminally investigate or prosecute any alcohol or drug abuse patient.[facility] CenterIn the event this information is protected by the Federal Confidentiality of Alcohol and Drug Abuse Patient Records regulations: The Federal rules restrict any use of the information to criminally investigate or prosecute any alcohol or drug abuse patient.[facility] CenterIn the event this information is protected by the Federal Confidentiality of Alcohol and Drug Abuse Patient Records regulations: The Federal rules restrict any use of the information to criminally investigate or prosecute any alcohol or drug abuse patient.[facility] CenterIn the event this information is protected by the Federal Confidentiality of Alcohol and Drug Abuse Patient Records regulations: The Federal rules restrict any use of the information to criminally investigate or prosecute any alcohol or drug abuse patient.[facility] CenterIn the event this information is protected by the Federal Confidentiality of Alcohol and Drug Abuse Patient Records regulations: The Federal rules restrict any use of the information to criminally investigate or prosecute any alcohol or drug abuse patient.[facility] CenterIn the event this information is protected by the Federal Confidentiality of Alcohol and Drug Abuse Patient Records regulations: The Federal rules restrict any use of the information to criminally investigate or prosecute any alcohol or drug abuse patient.[facility] CenterIn the event this information is protected by the Federal Confidentiality of Alcohol and Drug Abuse Patient Records regulations: The Federal rules restrict any use of the information to criminally investigate or prosecute any alcohol or drug abuse patient.[facility] CenterIn the event this information is protected by the Federal Confidentiality of Alcohol and Drug Abuse Patient Records regulations: The Federal rules restrict any use of the information to criminally investigate or prosecute any alcohol or drug abuse patient.[facility] CenterIn the event this information is protected by the Federal Confidentiality of Alcohol and Drug Abuse Patient Records regulations: The Federal rules restrict any use of the information to criminally investigate or prosecute any alcohol or drug abuse patient.[facility] CenterIn the event this information is protected by the Federal Confidentiality of Alcohol and Drug Abuse Patient Records regulations: The Federal rules restrict any use of the information to criminally investigate or prosecute any alcohol or drug abuse patient.[facility] CenterIn the event this information is protected by the Federal Confidentiality of Alcohol and Drug Abuse Patient Records regulations: The Federal rules restrict any use of the information to criminally investigate or prosecute any alcohol or drug abuse patient.[facility] CenterIn the event this information is protected by the Federal Confidentiality of Alcohol and Drug Abuse Patient Records regulations: The Federal rules restrict any use of the information to criminally investigate or prosecute any alcohol or drug abuse patient.[facility] CenterIn the event this information is protected by the Federal Confidentiality of Alcohol and Drug Abuse Patient Records regulations: The Federal rules restrict any use of the information to criminally investigate or prosecute any alcohol or drug abuse patient.[facility] CenterIn the event this information is protected by the Federal Confidentiality of Alcohol and Drug Abuse Patient Records regulations: The Federal rules restrict any use of the information to criminally investigate or prosecute any alcohol or drug abuse patient.[facility] CenterIn the event this information is protected by the Federal Confidentiality of Alcohol and Drug Abuse Patient Records regulations: The Federal rules restrict any use of the information to criminally investigate or prosecute any alcohol or drug abuse patient.[facility] CenterIn the event this information is protected by the Federal Confidentiality of Alcohol and Drug Abuse Patient Records regulations: The Federal rules restrict any use of the information to criminally investigate or prosecute any alcohol or drug abuse patient.[facility] CenterIn the event this information is protected by the Federal Confidentiality of Alcohol and Drug Abuse Patient Records regulations: The Federal rules restrict any use of the information to criminally investigate or prosecute any alcohol or drug abuse patient.[facility] CenterIn the event this information is protected by the Federal Confidentiality of Alcohol and Drug Abuse Patient Records regulations: The Federal rules restrict any use of the information to criminally investigate or prosecute any alcohol or drug abuse patient.[facility] CenterIn the event this information is protected by the Federal Confidentiality of Alcohol and Drug Abuse Patient Records regulations: The Federal rules restrict any use of the information to criminally investigate or prosecute any alcohol or drug abuse patient.[facility] Reason for Visit (unrecogniz ed section and content) Reason Onset Date Comments Refill Request 02/11/2022 Reason Comments Medication Follow-up Reason Onset Date Comments Refill Request 04/03/2022 Reason Onset Date Comments Refill Request 04/30/2022 Reason Comments Lab Orders Reason Comments Patient Question Reason Comments Imm/Inj Reason Onset Date Comments Refill Request 05/22/2022 Reason Comments Orders Reason Onset Date Comments Refill Request 07/08/2022 Reason Onset Date Comments Refill Request 07/14/2022 Reason Onset Date Comments Refill Request 09/19/2022 Reason Onset Date Comments Refill Request 09/16/2022 Reason Onset Date Comments Refill Request 10/03/2022 Reason Onset Date Comments Refill Request 10/23/2022 Reason Onset Date Comments Refill Request 10/20/2022 Reason Comments medication review Reason Onset Date Comments Refill Request 01/04/2023 Reason Onset Date Comments Refill Request 02/05/2023 Reason Comments Insurance Authorization Reason Onset Date Comments Refill Request 05/04/2023 Reason Onset Date Comments Refill Request 06/06/2023 Reason Onset Date Comments Refill Request 08/09/2023 Reason Comments ADD/ADHD Reason Comments Well Woman Reason Comments medication concern Care Teams (unrecognized sec tion and content) News Correspondent Relationship Specialty Start Date End Date Audie Pereyra, DO [address] [place] [address] PCP - General Family Practice 05/18/20 News Correspondent Relationship Specialty Start Date End Date Audie Pereyra, DO [address] [place] [address] PCP - General Family Practice 05/18/20 News Correspondent Relationship Specialty Start Date End Date Audie Pereyra, DO [address] [place] [address] PCP - General Family Practice 05/18/20 News Correspondent Relationship Specialty Start Date End Date Audie Pereyra, DO [address] [place] [address] PCP - General Family Practice 05/18/20 News Correspondent Relationship Specialty Start Date End Date Audie Pereyra, DO [address] [place] [address] PCP - General Family Practice 05/18/20 News Correspondent Relationship Specialty Start Date End Date Audie Pereyra, DO [address] [place] [address] PCP - General Family Practice 05/18/20 News Correspondent Relationship Specialty Start Date End Date Audie Pereyra, DO [address] [place] [address] PCP - General Family Practice 05/18/20 News Correspondent Relationship Specialty Start Date End Date Audie Pereyra, DO [address] [place] [address] PCP - General Family Practice 05/18/20 News Correspondent Relationship Specialty Start Date End Date Audie Pereyra, DO [address] [place] [address] PCP - General Family Practice 05/18/20 News Correspondent Relationship Specialty Start Date End Date Audie Pereyra, DO [address] [place] [address] PCP - General Family Medicine 05/18/20 News Correspondent Relationship Specialty Start Date End Date Audie Pereyra, DO [address] [place] [address] PCP - General Family Medicine 05/18/20 News Correspondent Relationship Specialty Start Date End Date Audie Pereyra, DO [address] [place] [address] PCP - General Family Medicine 05/18/20 News Correspondent Relationship Specialty Start Date End Date Audie Pereyra, DO [address] [place] [address] PCP - General Family Medicine 05/18/20 News Correspondent Relationship Specialty Start Date End Date Audie Pereyra, DO [address] [place] [address] PCP - General Family Medicine 05/18/20 News Correspondent Relationship Specialty Start Date End Date Audie Pereyra, DO [address] [place] [address] PCP - General Family Medicine 05/18/20 News Correspondent Relationship Specialty Start Date End Date Audie Pereyra, DO [address] [place] [address] PCP - General Family Medicine 05/18/20 News Correspondent Relationship Specialty Start Date End Date Audie Pereyra, DO [address] [place] [address] PCP - General Family Medicine 05/18/20 News Correspondent Relationship Specialty Start Date End Date Audie Pereyra, DO [address] [place] [address] PCP - General Family Medicine 05/18/20 News Correspondent Relationship Specialty Start Date End Date Audie Pereyra DO [address] [place] [address] PCP - General Family Medicine 05/18/20 News Correspondent Relationship Specialty Start Date End Date Audie Pereyra DO [address] [place] [address] PCP - General Family Medicine 05/18/20 News Correspondent Relationship Specialty Start Date End Date Audie Pereyra DO [address] [place] [address] PCP - General Family Medicine 05/18/20 News Correspondent Relationship Specialty Start Date End Date Audie Pereyra DO [address] [place] [address] PCP - General Family Medicine 05/18/20 News Correspondent Relationship Specialty Start Date End Date Audie Pereyra DO [address] [place] [address] PCP - General Family Medicine 05/18/20 News Correspondent Relationship Specialty Start Date End Date Audie Pereyra DO [address] [place] [address] PCP - General Family Medicine 05/18/20 News Correspondent Relationship Specialty Start Date End Date Audie Pereyra DO [address] [place] [address] PCP - General Family Medicine 05/18/20 News Correspondent Relationship Specialty Start Date End Date Audie Pereyra DO [address] [place] [address] PCP - General Family Medicine 05/18/20 News Correspondent Relationship Specialty Start Date End Date Audie Pereyra DO [address] [place] [address] PCP - General Family Medicine 05/18/20 News Correspondent Relationship Specialty Start Date End Date Audie Pereyra DO [address] [place] [address] PCP - General Family Medicine 05/18/20 Luly Goodwin, [employer]ER [address] [facility] [place] [address] [employer] [facility] 10/11/24 Taylor Carrillo, [employer]EVERAGE ST[employer]ARD[employer]HOOD MAKER [address] [place] [address] [employer] Family Medicine 10/11/24 News Correspondent Relationship Specialty Start Date End Date Audie Pereyra DO [address] [facility] [place] [address] PCP - General Family Medicine 05/18/20 Luly Goodwin, BEVERAGE STEWARD.HOOD MAKER [address] [facility] [place] [address] [employer] Family Medicine 10/11/24 01/22/25 Taylor Carrillo, [employer]EVERAGE STEWARD.HOOD MAKER [address] [facility] [place] [address] [employer] Family [facility] 10/11/24 Team Status: Active Member Role/Relationship Status Dates Dr. Wood Damian MD Family Provider Active Dr. Wood Damian MD Primary Care Provider Active Team Status: Inactive Member Role/Relationship Status Dates Dr. Wood Damian MD Primary Care Provider Active Start: May 03, 2025 End: May 03, 2025 Dr. Wood Damian MD Referring Provider Active S tart: May 03, 2025 End: May 03, 2025 CLAUDIA Aldrich Attending Provider Active Start: May 03, 2025 End: May 03, 2025 Team Status: Active Member Role/Relationship Status Dates Dr. Wood Damian MD Primary Care Provider Active Start: May 03, 2025 CLAUDIA Aldrich Attending Provider Active Start: May 03, 2025 Team Status: Inactive Member Role/Relationship Status Dates Dr. Wood Damian MD Primary Care Provider Active Start: May 03, 2025 End: May 03, 2025 CLAUDIA Ald[place] Attending Provider Active Start: May 03, 2025 End: May 03, 2025 Goals (unrecognized section and content) Goals may be documented in a n alternate sectionGoals may be documented in an alternate sectionGoals may be documented in an alternate section FOR RECORDS PERTAINING TO PATIENTS WHO ARE OR HAVE BEEN ENROLLED IN A CHEMICAL DEPENDENCY/SUBSTANCEABUSE PROGRAM, SOME INFORMATION MAY BE OMITTED. This clinical summary was aggregated from multiple sources. Caution should be exercised in using it in the provision of clinical care. This summary normalizes information from multiple sources, and as a consequence, information in this document may materially change the coding, format and clinical context of patient data. In addition, data may be omitted in some cases. CLINICAL DECISIONS SHOULD BE BASED ON THE PRIMARY CLINICAL RECORDS. [employer] provides no warranty or guarantee of the accuracy or completeness of information in this document.
[2025-07-22 07:52] LABS: HIV Nonreactive (Nonreactive); Hepatitis B Surface Antigen Nonreactive (Nonreactive); Hepatitis C Antibody Nonreactive (Nonreactive)
== END 2025-07-22 07:19 | disposition home or self-care (01) ==
LOC: ED 06:36
PROVIDERS: PCP Nurse Practitioner Family; Visit Provider Emergency Medicine
DX: Z23 Encounter for immunization (principal)
CPT/HCPCS: 86703; 86706; 86803; 87340